=== PATIENT | male | born 1935 | race Caucasian/White ===

== ENCOUNTER → 2016-04-13 | Outpatient (CLI) | payer OTHER, MEDICARE, BC | END | disposition home or self-care (01) | LOC: LABWHC1 11:19 | PROVIDERS: ATTEND Radiology Radiation Oncology | DX: C61 Malignant neoplasm of prostate (principal) | CPT/HCPCS: 36415; 84153 ==

== ENCOUNTER → 2016-04-21 | Outpatient (CLI) | payer MEDICARE, BC ==
[2016-04-21 10:55] LABS: Anion Gap 13 mmol/L; Blood Urea Nitrogen 18 mg/dL (9-20); Carbon Dioxide 28 mmol/L (22-30); Chloride 105 mmol/L (98-107); Non-African American GFR(MDRD) 60 (>60 ml/min/1.73 sqM); Potassium 3.9 mmol/L (3.5-5.1); Sodium 146 mmol/L (137-145)
== END | disposition home or self-care (01) ==
LOC: LABWHC1 10:04
PROVIDERS: ATTEND Internal Medicine Interventional Cardiology
DX: I10 Essential (primary) hypertension (principal)
CPT/HCPCS: 36415; 80051; 82565; 84520

== ENCOUNTER 2016-05-10 13:50 | Emergency (ER) | payer MEDICARE, BC, OTHER ==
[2016-05-10 14:08] VITALS: BP 194/93; PULSE 50; RESP 18; TEMP 97.7
[2016-05-10] MEDS ORDERED: DIPH,PERTUS(ACELL)TETVAC-LF 0.5 ML VIAL IM ONE (14:25)
[2016-05-10] MEDS ORDERED: GELATIN SPONGE,ABSORB (SMALL) 1 EACH SPONGE TOPICAL STA (14:25)
--- NOTE | 2016-05-10 14:35 | ED ---
Wound/Laceration HPI - General Chief Complaint: Wound/Laceration Stated Complaint: Hand Injury-lacerated finger Time Seen by Provider: 05/10/16 14:15 Source: patient, RN notes reviewed Mode of arrival: ambulatory Limitations: no limitations - History of Present Illness Initial Comments: Patient is a 80-year-old male presents emergency room for evaluation of right ring finger laceration. Patient's is present with patient. Patient's states that patient was unhooking the dog leash and accidentally cut his finger with the dog tag. Patient's denies the dog biting patient. Patient 's states that she immediately washed his finger and covered it up with a compression bandage. Patient's states that the area is still bleeding today. Patient's does state that patient is on aspirin and Plavix. Patient's states that patient is due for an update on his tetanus vaccine. Patient's denies any other injuries during incident. - Related Data Home Medications Medication Instructions Recorded Confirmed Allopurinol [Zyloprim] 100 mg PO BID 05/20/15 05/10/16 Aspirin [Adult Low Dose Aspirin EC] 81 mg PO HS 05/20/15 05/10/16 Cholecalciferol [Vitamin D3] 2,000 unit PO DAILY@1200 05/20/15 05/10/16 Clopidogrel [Plavix] 75 mg PO DAILY 05/20/15 05/10/16 Ferrous Sulfate [Feosol] 325 mg PO DAILY@1200 05/20/15 05/10/16 Fish Oil/Dha/Epa [Fish Oil 1,200 1 cap PO DAILY@119905/20/15 05/10/16 mg Fish Oil] Latanoprost Ophth [Xalatan 0.005%] 1 drops BOTH EYES 05/20/15 05/10/16 Losartan Potassium [Cozaar] 100 mg PO DAILY 05/20/15 05/10/16 Lutein 20 mg PO DAILY@119905/20/15 05/10/16 Omeprazole [PriLOSEC] 20 mg PO AC-BID 05/20/15 05/10/16 Vitamin E (Dl,Tocopheryl Acet) 1,200 unit PO DAILY@1200 05/20/15 05/10/16 [Vitamin E] amLODIPine [Norvasc] 10 mg PO DAILY 05/20/15 05/10/16 glipiZIDE [Glucotrol] 5 mg PO AC-TID 05/20/15 05/10/16 sitaGLIPtin PHOSPHATE [Januvia] 100 mg PO DAILY 05/20/15 05/10/16 Furosemide [Lasix] 40 mg PO DAILY@1200 01/28/16 05/10/16 Levothyroxine Sodium [Synthroid] 50 mcg PO DAILY 01/28/16 05/10/16 Metoprolol Tartrate [Lopressor] 25 mg PO BID 01/28/16 05/10/16 Potassium Chloride [Klor-Con 10] 10 meq PO DAILY 01/28/16 05/10/16 Previous Rx's Medication Instructions Recorded Nitroglycerin Sl Tabs [Nitrostat] 0.4 mg SUBLINGUAL Q5M PRN #25 tab 05/23/15 hydrALAZINE HCL [Apresoline] 50 mg PO TID #90 tab 01/29/16 Cephalexin [Keflex] 500 mg PO Q6HR 5 Days 05/10/16 Allergies Allergy/AdvReac Type Severity Reaction Status Date / Time iodine Allergy Dyspnea Verified 05/10/16 14:08 Mushroom Allergy Unknown Verified 05/10/16 14:08 shellfish derived [Shellfish] Allergy Unknown Verified 05/10/16 14:08 Review of Systems ROS Statement: Those systems with pertinent positive or pertinent negative responses have been documented in the HPI. ROS Other: All systems not noted in ROS Statement are negative. 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 , gout, hx skin cancer, prostate cancer, History of Any Multi-Drug Resistant Organisms: None Reported Past Surgical History: Adenoidectomy, Hernia Repair, Tonsillectomy Additional Past Surgical History / Comment(s): skin cancer removed from face, removal of kidney stone, hemorrhoidectomy, Past Anesthesia/Blood Transfusion Reactions: Previous Problems w/ Anesthesia Additional Past Anesthesia/Blood Transfusion Reaction / Comment(s): "takes long to come out" Date of Last Stent Placement:: Past Psychological History: No Psychological Hx Reported Smoking Status: Never smoker Past Alcohol Use History: None Reported Past Drug Use History: None Reported - Past Family History Mother Family Medical History: No Reported History Additional Family Medical History / Comment(s): heart disease, brain anuerysm, boarerline diabetic Father Family Medical History: Diabetes Mellitus, Osteoarthritis (OA), Prostate Disorder Additional Family Medical History / Comment(s): heart disease General Exam - General Exam Comments Initial Comments: Sitting in exam room in no acute distress. Limitations: no limitations General appearance: alert, in no apparent distress Head exam: Present: atraumatic, normocephalic Eye exam: Present: normal appearance ENT exam: Present: normal exam Neck exam: Present: normal inspection Respiratory exam: Absent: respiratory distress Right Hand Wrist exam: Present: full ROM, laceration (1cm laceration on dorsal distal phalanx of right 4th digit, mild active bleeding). Absent: tenderness Neuro motor exam: Present: wrist extension intact, thumb opposition intact, thumb IP flexion intact, thumb adduction intact, fingers 2-5 abduction intact Vascular: Present: normal capillary refill (Capillary refill less than 2 seconds ), radial pulse (2+), ulnar pulse (2+) Back exam: Present: normal inspection Neurological exam: Present: alert, oriented X3, CN II-XII intact Psychiatric exam: Present: normal affect, normal mood Skin exam: Present: warm, dry, normal color. Absent: rash Course Vital Signs 05/10/16 14:05 Temperature 97.7 F Pulse Rate 50 L Respiratory 18 Rate Blood Pressure 194/93 O2 Sat by Pulse 98 Oximetry Medical Decision Making - Medical Decision Making Patient is a 80-year-old male presents to the emergency room for evaluation of right ring finger laceration. Gelfoam was placed over the area and bleeding subsided. Patient was updated on his tetanus vaccine. Patient will be placed on Keflex prophylactically. Patient and his state they understand everything that was discussed with them. Return parameters discussed. Case discussed with Dr. Liao. Disposition Clinical Impression: Finger laceration Disposition: HOME SELF-CARE Condition: Good Instructions: Finger Laceration (ED) Additional Instructions: Keep Gelfoam on for the next 24-48 hours. After Gelfoam falls off, clean laceration with warm water and antibacterial soap. Take antibiotics as directed. Take Tylenol or Motrin as needed for pain. Please follow up with primary care provider in 1-2 days. If any new symptom arises or symptoms worsen , return to ER as soon as possible. Prescriptions: Cephalexin [Keflex] 500 mg PO Q6HR 5 Days Referrals: Warner Parada DO [Primary Care Provider] - 1-2 days Time of Disposition: 14:33
== END 2016-05-10 15:08 | disposition home or self-care (01) ==
LOC: EC 13:50
DX: S61.214A Laceration without foreign body of right ring finger without damage to nail, initial encounter (principal); W45.8XXA Other foreign body or object entering through skin, initial encounter; E11.9 Type 2 diabetes mellitus without complications; I10 Essential (primary) hypertension; E07.9 Disorder of thyroid, unspecified; I20.9 Angina pectoris, unspecified; G47.30 Sleep apnea, unspecified; Z99.89 Dependence on other enabling machines and devices; I69.392 Facial weakness following cerebral infarction; I69.351 Hemiplegia and hemiparesis following cerebral infarction affecting right dominant side; Z23 Encounter for immunization; Z79.82 Long term (current) use of aspirin; Z79.02 Long term (current) use of antithrombotics/antiplatelets; Z79.84 Long term (current) use of oral hypoglycemic drugs; Z79.899 Other long term (current) drug therapy; Z88.8 Allergy status to other drugs, medicaments and biological substances; I69.328 Other speech and language deficits following cerebral infarction
CPT/HCPCS: 90471; 90715; 99282

== ENCOUNTER → 2016-06-30 | Outpatient (CLI) | payer MEDICARE, BC ==
[~2016-06-30] MED LIST: FUROSEMIDE 10 MG/ML 2 ML VIAL IVP NR; SODIUM CHLORIDE 0.9% 1,000 ML IV ONE; SODIUM CHLORIDE 0.9% 250 ML in EMPTY BAG 1 BAG IV PRN; SODIUM CHLORIDE 0.9% 500 ML in EMPTY BAG 1 BAG IV PRN
[2016-06-30] MEDS: SODIUM CHLORIDE 0.9% 1,000 ML IV ONE ×2 (12:25→14:32)
[2016-06-30 12:44] VITALS: BP 180/86; PULSE 53; RESP 16; TEMP 97.7
== END | disposition home or self-care (01) ==
LOC: PROCWHC3 12:12
PROVIDERS: ATTEND Family Medicine
DX: E86.0 Dehydration (principal); J11.1 Influenza due to unidentified influenza virus with other respiratory manifestations
CPT/HCPCS: 96360; 96361; 96375; J1940; 80053; 85025

== ENCOUNTER → 2016-08-18 | Outpatient (CLI) | payer MEDICARE, BC | END | disposition home or self-care (01) | LOC: LABWHC1 12:07 | PROVIDERS: ATTEND Radiology Radiation Oncology | DX: C61 Malignant neoplasm of prostate (principal) | CPT/HCPCS: 36415; 84153 ==

== ENCOUNTER → 2016-09-17 | Outpatient (CLI) | payer MEDICARE, BC, OTHER ==
[2016-09-17 10:19] LABS: ALT 26 U/L (21-72); AST 14 U/L (17-59); Cholesterol 105 mg/dL (<200); HDL Cholesterol 31 mg/dL (40-60); Triglycerides 166 mg/dL (<150)
== END | disposition home or self-care (01) ==
LOC: LABWHC1 09:08
PROVIDERS: ATTEND Internal Medicine Interventional Cardiology
DX: E78.2 Mixed hyperlipidemia (principal)
CPT/HCPCS: 36415; 80061; 84450; 84460

== ENCOUNTER → 2016-09-18 | Outpatient (CLI) | payer MEDICARE, BC, OTHER ==
[2016-09-18 12:13] LABS: CH 31.8; CHCM 35.9; HCT 37.3 % (39.0-53.0); HDW 3.19; HGB 13.5 gm/dL (13.0-17.5); MCH 32.2 pg (25.0-35.0); MCHC 36.2 g/dL (31.0-37.0); Mean Platelet Volume 7.9; RBC 4.19 m/uL (4.30-5.90); RDW 13.8 % (11.5-15.5); WBC 7.6 k/uL (3.8-10.6)
[2016-09-18 12:42] LABS: Anion Gap 9 mmol/L; Blood Urea Nitrogen 24 mg/dL (9-20); Carbon Dioxide 27 mmol/L (22-30); Chloride 105 mmol/L (98-107); Non-African American GFR(MDRD) >60 (>60 ml/min/1.73 sqM); Sodium 141 mmol/L (137-145)
== END ==
LOC: LABPAT 11:27
PROVIDERS: ATTEND Internal Medicine Interventional Cardiology
DX: Z01.812 Encounter for preprocedural laboratory examination (principal); I25.10 Atherosclerotic heart disease of native coronary artery without angina pectoris
CPT/HCPCS: 36415; 80051; 82565; 84520; 85027

== ENCOUNTER 2016-09-23 06:29 | Day surgery (SDC) | payer MEDICARE, BC ==
[2016-09-18 09:16] VITALS: BMI 24.2
[~2016-09-23 06:29] MED LIST changes: +ALPRAZolam 0.25 MG TAB PO PRN; +ALPRAZolam 0.5 MG TAB PO PRN; +ASPIRIN 325 MG TAB PO STA; +ATORVASTATIN 80 MG TAB PO STA; -FUROSEMIDE 10 MG/ML 2 ML VIAL IVP NR; +NITROGLYCERIN SL TABS 0.4 MG TAB SUBLINGUAL PRN; -SODIUM CHLORIDE 0.9% 1,000 ML IV ONE; +SODIUM CHLORIDE 0.9% 1,000 ML in EMPTY BAG 1 BAG IV ONE; -SODIUM CHLORIDE 0.9% 250 ML in EMPTY BAG 1 BAG IV PRN; -SODIUM CHLORIDE 0.9% 500 ML in EMPTY BAG 1 BAG IV PRN
[2016-09-23] MEDS ORDERED: LIDOCAINE 2% INJ 20 MG/ML (20 ML MDV) ONE (07:10)
[2016-09-23] MEDS ORDERED: INSULIN LISPRO (humaLOG) 300 UNIT/3 ML VIAL SQ ONE (07:17)
[2016-09-23] MEDS ORDERED: IV FLUID CONTINUATION 1,000 ML IV ONE (07:19)
[2016-09-23 07:22] LABS: Glucose,Whole Blood 405 mg/dL (75-99)
[2016-09-23] MEDS ORDERED: fentaNYL (PF) 50 MCG/ML 2 ML AMP ONE (07:25)
[2016-09-23] MEDS ORDERED: MIDAZOLAM 2 MG/2 ML VIAL ONE (07:25)
[2016-09-23] MEDS ORDERED: VERAPAMIL 2.5 MG/ML 2 ML AMP ONE (07:25)
[2016-09-23] MEDS ORDERED: HEPARIN SODIUM 1,000 UN/ML (10ML VL) ONE (07:25)
[2016-09-23] MEDS ORDERED: fentaNYL (PF) 50 MCG/ML 2 ML AMP IV ONE (07:34)
[2016-09-23] MEDS ORDERED: LIDOCAINE 2% INJ 20 MG/ML SQ ONE (07:35)
[2016-09-23] MEDS: VERAPAMIL SYRINGE (5 MG/10 ML) INTRAARTER ONE ×2 (07:37→07:50)
[2016-09-23] MEDS ORDERED: BIVALIRUDIN BOLUS 250 MG/50 ML IV ONE (07:47)
[2016-09-23] MEDS ORDERED: BIVALIRUDIN 250 MG in SODIUM CHLORIDE 0.9% 50 ML IV ONE (07:48)
[2016-09-23] MEDS ORDERED: NITROGLYCERIN 1000MCG/10ML SYRINGE INTRACORON ONE (08:02)
[2016-09-23] MEDS ORDERED: IOHEXOL 350 MG/ML 125ML BOTTLE INJ ONE (08:12)
[2016-09-23] MEDS ORDERED: RX INFO: IV CONTRAST WAS GIVEN 1 EACH MISC MISCELLANE PRN (08:28)
[2016-09-23] MEDS ORDERED: SODIUM CHLORIDE 0.9% 1,000 ML IV SCH (08:30)
[2016-09-23 08:52] VITALS: RESP 18
[2016-09-23] MEDS: ALLOPURINOL 100 MG TAB PO SCH (09:49)
[2016-09-23] MEDS: LEVOTHYROXINE 50 MCG TAB PO SCH (09:50)
[2016-09-23] MEDS: METOPROLOL TARTRATE 50 MG TAB PO SCH ×2 (09:50→21:28)
[2016-09-23] MEDS: LOSARTAN 50 MG TAB PO SCH (09:50)
[2016-09-23] MEDS: LINAGLIPTIN 5 MG TABLET PO SCH (09:51)
[2016-09-23] MEDS: PANTOPRAZOLE 40 MG TABLET PO SCH (09:51)
[2016-09-23] MEDS: amLODIPine 10 MG TAB PO SCH (09:51)
--- NOTE | 2016-09-23 10:34 | PCN ---
CARDIAC CATHETERIZATION Mr. Avelar is a 81-year-old male with a know history of coronary artery disease , status post percutaneous revascularization in May of 2005 who presented with symptoms of recurrent chest discomfort relieved with nitroglycerine. In view of that, recommendation regarding cardiac catheterization, the procedure, the procedure, its risks and complications were discussed with the patient who is in full understanding and agreement. PROCEDURE: The patient was brought to the [facility] in a fasting semi-sedated state after receiving Fentanyl and Benadryl and after achieving moderate conscious sedated state and using Xylocaine anesthesia and Seldinger Technique, a 6 [place] sheath was introduced in the right radial artery, selective right and left coronary angiography was performed using 5 [place], 4 Bend Right Javi catheter, multiple views of the coronary artery including nakia-axial views were obtained. Following that, 5 [place] tight pigtail catheter was introduced into the left ventricle and a 30 degree MCDONALD view of the left ventricle was obtained. Following that, catheter was removed, images were reviewed. FINDINGS: LEFT MAIN: This is a large size vessel, bifurcating into left circumflex, left anterior descending artery, left main coronary artery is without any obstructive disease. LEFT ANTERIOR DESCENDING CORONARY ARTERY: This is a large size vessel, tapers down the distal third, giving rise to a large diagonal branch in midsegment, the stented segment proximally is patent, the second stent in the mid LAD is patent. Proximal to the second stent, right after the bifurcation of the diagonal branch, there is an eccentric 95% stenosis. The rest of the vessel has no high-grade stenosis. LEFT CIRCUMFLEX: This is a nondominant vessel, giving rise to 3 obtuse marginal branches, the left circumflex has mild intimal disease in the first obtuse marginal branch 20% to 30% without any evidence of high-grade stenosis. RIGHT CORONARY ARTERY: This is a large dominant vessel, bifurcating into PDA and posterolateral branches, the right coronary artery as well as branches have no evidence of obstructive coronary artery disease. LEFT VENTRICULOGRAM: The left ventriculogram was performed in 30 degree MCDONALD view and revealed normal left ventricular size and systolic function, ejection fraction 60%. There was no significant mitral regurgitation. HEMODYNAMICS: There was no gradient across the aortic valve, the left ventricular end-diastolic pressure was 18 to 22 mmHg. CONCLUSION: 1. Significant stenosis proximal to the second stent in the mid left anterior descending artery. 2. Mild disease in the left circumflex. 3. Normal left ventricular size and systolic function. RECOMMENDATION: In view of finding anatomy, I recommend proceeding with angioplasty and stenting of the anterior descending artery. The procedure as well as the risks and complications were discussed with the patient who is under full understanding and agreement. MARIA INES
[2016-09-23] MEDS: CLOPIDOGREL 75 MG TAB PO SCH (10:46)
--- NOTE | 2016-09-23 11:16 | PCN ---
ANGIOPLASTY: Mr. Avelar is a 81-year-old male with a known history of coronary artery disease who presented with symptoms of new onset angina pectoris, underwent cardiac catheterization, was found to have critical stenosis proximal to the mid LAD stent. In view of that, recommendation made regarding angioplasty and stenting, the procedure, as well as risks and complications were discussed with the patient who is in full understanding and agreement. Procedure: a 6 [place] 3.5 Bend left Javi catheter was used to cannulate the left main. Following that, 0.014 Advance medium J-wire was advanced across the lesion, advanced through the vessel and advanced through the first diagonal branch and another 0.014 Advance medium J-wire was advanced and positioned in the distal LAD. Following that, a 2.5 x 12 mm Trek balloon was advanced with inflation at 8 atmospheres was done. Following that, the balloon was removed and a 2.75 x 12 mm Xience Alpine stent was deployed, post- dilated to 14 atmospheres, after the last inflation, after appropriate wait, the balloon and guidewire were withdrawn back into the guiding catheter. Images were obtained and repeated. Those images revealed stable successful stenting. At that point, the guiding catheter, the balloon and the guidewire were removed. The sheath was removed, hemostasis was obtained with deployment of a TR band. There was no immediate complication. Patient was returned to his room in a stable condition. Of note, the patient received Angiomax per protocol. He has received intra-arterial Verapamil. He had EKG changes with the inflation with no significant chest discomfort. RESULT: Successful stenting of the mid LAD with reduction of stenosis from 95% to 0%. RECOMMENDATION: The patient will be continued on aspirin, Plavix, beta adin , and statin. The importance of dual antiplatelet treatment was discussed with the patient and his family, who are in full understanding and agreement. DURATION OF THE PROCEDURE: 41 minutes. MARIA INES
--- NOTE | 2016-09-23 11:24 | MISC ---
RE: JEREMY HARRISON Dear Dr. Parada; I had the pleasure to perform cardiac catheterization and coronary angioplasty and stenting on Mr. Harrison at [facility] on September 23, 2016 and a full copy of the procedure note will be forwarded to you. In brief, he was found to have significant stenosis in the mid LAD, underwent successful stenting of that vessel using a EVA. I am hopeful that this procedure will stabilize his status and thank you again for allowing me to participate in this patient's care. Please feel free to call for any questions. Sincerely yours, MD MARIA INES Eubanks
[2016-09-23] MEDS: FERROUS SULFATE 325 MG TAB PO SCH (11:36)
[2016-09-23] MEDS: CHOLECALCIFEROL 1,000 UNIT TAB PO SCH (11:36)
[2016-09-23] MEDS: glipiZIDE 10 MG TAB PO SCH ×2 (11:36→16:59)
[2016-09-23] MEDS: VITAMIN E (DL,TOCOPHERYL ACET) 400 UNIT CAP PO SCH (11:37)
[2016-09-23] MEDS ORDERED: NON-FORMULARY DRUG (Fish Oil/Dha/Epa [Fish Oil 1,200 Mg Fish Oil] 1 CAP) PO SCH (12:00)
[2016-09-23] MEDS ORDERED: NON-FORMULARY DRUG (Lutein [Lutein] 20 MG) PO SCH (12:00)
[2016-09-23 12:07] LABS: Glucose,Whole Blood 415 mg/dL (75-99)
[2016-09-23] MEDS: INSULIN LISPRO (humaLOG) 300 UNIT/3 ML VIAL SQ SCH ×3 (13:03→21:28)
[2016-09-23 16:25] LABS: Glucose,Whole Blood 355 mg/dL (75-99)
[2016-09-23 20:26] LABS: Glucose,Whole Blood 288 mg/dL (75-99)
[2016-09-23] MEDS ORDERED: LATANOPROST 0.005% OPHTH DROPS 2.5 ML BTL BOTH EYES SCH (21:00)
[2016-09-23] MEDS ORDERED: TAMSULOSIN 0.4 MG CAP.ER.24H PO SCH (21:00)
[2016-09-24 05:54] LABS: Glucose,Whole Blood 240 mg/dL (75-99)
[2016-09-24 06:19] LABS: Anion Gap 8 mmol/L; Blood Urea Nitrogen 27 mg/dL (9-20); Calcium 9.5 mg/dL (8.4-10.2); Carbon Dioxide 26 mmol/L (22-30); Chloride 106 mmol/L (98-107); Glucose 216 mg/dL (74-99); Non-African American GFR(MDRD) >60 (>60 ml/min/1.73 sqM); Potassium 3.7 mmol/L (3.5-5.1); Sodium 140 mmol/L (137-145)
[2016-09-24] MEDS: glipiZIDE 10 MG TAB PO SCH (06:31)
[2016-09-24] MEDS: PANTOPRAZOLE 40 MG TABLET PO SCH (06:31)
[2016-09-24] MEDS: INSULIN LISPRO (humaLOG) 300 UNIT/3 ML VIAL SQ SCH (06:31)
[2016-09-24] MEDS: LEVOTHYROXINE 50 MCG TAB PO SCH (06:31)
[2016-09-24 08:28] VITALS: BP 138/67; PULSE 57; TEMP 97.9
[2016-09-24] MEDS: VITAMIN E (DL,TOCOPHERYL ACET) 400 UNIT CAP PO SCH (08:38)
[2016-09-24] MEDS: CLOPIDOGREL 75 MG TAB PO SCH (08:39)
[2016-09-24] MEDS: amLODIPine 10 MG TAB PO SCH (08:39)
[2016-09-24] MEDS: FERROUS SULFATE 325 MG TAB PO SCH (08:39)
[2016-09-24] MEDS: METOPROLOL TARTRATE 50 MG TAB PO SCH (08:39)
[2016-09-24] MEDS: LOSARTAN 50 MG TAB PO SCH (08:39)
[2016-09-24] MEDS: ALLOPURINOL 100 MG TAB PO SCH (08:39)
[2016-09-24] MEDS: CHOLECALCIFEROL 1,000 UNIT TAB PO SCH (08:40)
[2016-09-24] MEDS: LINAGLIPTIN 5 MG TABLET PO SCH (08:40)
--- NOTE | 2016-09-24 09:18 | PN ---
Mr. Avelar is a 81-year-old male with known history of coronary artery disease who presented with symptoms of angina pectoris, underwent cardiac catheterization, was found to have significant stenosis proximal to the second stent of the LAD that was placed in May 2015, underwent stenting of that vessel. He is doing well this morning, ambulating without difficulty. Denying any chest pain, no dizziness, no palpitation. He continued to be on aspiration once a day, Plavix 75 mg daily, Lipitor 20 mg daily, glipizide 10 mg 3 times a day, levothyroxine 0.05 mg daily, Tradjenta 5 mg daily, Losartan 100 mg daily, metoprolol tartrate 100 mg twice a day, Protonix and Flomax. PHYSICAL EXAMINATION: Blood pressure 127/72 with the heart rate in the 50s LUNGS: Clear. HEART: Regular rate and rhythm. S1, S2, no S3, no rub. ABDOMEN: Soft, nontender. EXTREMITIES: No edema. Right radial pulse intake. EKG revealed no acute changes. BUN and creatinine 27 and 1.1. Potassium 3.7. IMPRESSION: 1. Status post stenting of the left anterior descending stable. 2. Hypertension. 3. Hyperlipidemia. 4. Diabetes mellitus. RECOMMENDATIONS: The patient will be discharged home today and followed as an outpatient on the present medical regimen. MARIA INES
[2016-09-24] MEDS ORDERED: ASPIRIN 81 MG CHEW PO SCH (21:00)
[2016-09-24] MEDS ORDERED: ATORVASTATIN 20 MG TAB PO SCH (21:00)
== END 2016-09-24 09:31 | disposition home or self-care (01) ==
LOC: CATHCVL 06:29 → 6SEL 08:11 → CATHCVL 09-24 09:31
PROVIDERS: ATTEND Internal Medicine Interventional Cardiology
DX: I25.110 Atherosclerotic heart disease of native coronary artery with unstable angina pectoris (principal); Z95.5 Presence of coronary angioplasty implant and graft; E78.2 Mixed hyperlipidemia; I12.9 Hypertensive chronic kidney disease with stage 1 through stage 4 chronic kidney disease, or unspecified chronic kidney disease; E11.22 Type 2 diabetes mellitus with diabetic chronic kidney disease; N18.9 Chronic kidney disease, unspecified; E78.00 Pure hypercholesterolemia, unspecified; G47.30 Sleep apnea, unspecified; Z82.49 Family history of ischemic heart disease and other diseases of the circulatory system; Z86.73 Personal history of transient ischemic attack (TIA), and cerebral infarction without residual deficits; Z79.84 Long term (current) use of oral hypoglycemic drugs; Z79.02 Long term (current) use of antithrombotics/antiplatelets; Z79.82 Long term (current) use of aspirin; Z79.899 Other long term (current) drug therapy
CPT/HCPCS: 99152; 99153; 93458; 80048; 83036; C9600; C1769 ×2; C1887; C1894; C1725; C1874; J2001; J3010; J0583; Q9967

== ENCOUNTER → 2016-12-31 | Outpatient (CLI) | payer MEDICARE, BC, OTHER ==
[2016-12-31 10:04] LABS: ALT 33 U/L (21-72); AST 20 U/L (17-59); Alkaline Phosphatase 86 U/L (38-126); Anion Gap 10 mmol/L; Blood Urea Nitrogen 19 mg/dL (9-20); Calcium 9.5 mg/dL (8.4-10.2); Carbon Dioxide 28 mmol/L (22-30); Chloride 110 mmol/L (98-107); Cholesterol 123 mg/dL (<200); Glucose 87 mg/dL (74-99); HDL Cholesterol 44 mg/dL (40-60); Non-African American GFR(MDRD) >60 (>60 ml/min/1.73 sqM); Sodium 148 mmol/L (137-145); Total Bilirubin 0.9 mg/dL (0.2-1.3); Total Protein 6.6 g/dL (6.3-8.2)
== END | disposition home or self-care (01) ==
LOC: LABWHC1 09:34
PROVIDERS: ATTEND Internal Medicine Interventional Cardiology
DX: E78.2 Mixed hyperlipidemia (principal)
CPT/HCPCS: 36415; 80053; 80061

== ENCOUNTER → 2017-04-28 | Outpatient (CLI) | payer MEDICARE, BC, OTHER ==
[2017-04-28 09:52] LABS: ALT 32 U/L (21-72); AST 22 U/L (17-59); Albumin 3.6 g/dL (3.5-5.0); Alkaline Phosphatase 90 U/L (38-126); Anion Gap 8 mmol/L; Blood Urea Nitrogen 23 mg/dL (9-20); Calcium 9.8 mg/dL (8.4-10.2); Carbon Dioxide 32 mmol/L (22-30); Chloride 107 mmol/L (98-107); Cholesterol 146 mg/dL (<200); Glucose 163 mg/dL (74-99); HDL Cholesterol 37 mg/dL (40-60); LDL Cholesterol,Calculated 61 mg/dL (0-99); Potassium 3.9 mmol/L (3.5-5.1); Sodium 147 mmol/L (137-145); Total Bilirubin 0.7 mg/dL (0.2-1.3); Total Protein 6.2 g/dL (6.3-8.2); Triglycerides 240 mg/dL (<150)
[2017-04-28 19:22] LABS: Hemoglobin A1C 5.8 % (4.0-6.0)
== END | disposition home or self-care (01) ==
LOC: LABWHC1 09:08
PROVIDERS: ATTEND Internal Medicine Endocrinology, Diabetes & Metabolism
DX: E11.65 Type 2 diabetes mellitus with hyperglycemia (principal)
CPT/HCPCS: 36415; 80053; 80061; 82043; 82570; 83036

== ENCOUNTER → 2017-05-12 | Outpatient (CLI) | payer MEDICARE, BC, OTHER ==
[2017-05-12 11:11] LABS: T4, Free (Free Thyroxine) 1.16 ng/dL (0.78-2.19)
[2017-05-12 17:46] LABS: Thyroid Peroxidase Antibodies 34.5 U/mL (0.0-60.0)
== END | disposition home or self-care (01) ==
LOC: LABWHC1 09:36
PROVIDERS: ATTEND Family Medicine
DX: E03.9 Hypothyroidism, unspecified (principal)
CPT/HCPCS: 36415; 84439; 84443; 84480; 86376; 86800

== ENCOUNTER 2017-06-25 06:55 | Day surgery (SDC) | payer MEDICARE, BC ==
[2017-06-23 15:19] VITALS: BMI 25.6
[~2017-06-25 06:55] MED LIST changes: -ALPRAZolam 0.25 MG TAB PO PRN; -ALPRAZolam 0.5 MG TAB PO PRN; -ASPIRIN 325 MG TAB PO STA; -ATORVASTATIN 80 MG TAB PO STA; +LACTATED RINGERS 1,000 ML IV SCH; +LIDOCAINE 1% 20 ML VIAL (10MG/ML) FOR IV START INTRADERMA PRN; -NITROGLYCERIN SL TABS 0.4 MG TAB SUBLINGUAL PRN; -SODIUM CHLORIDE 0.9% 1,000 ML in EMPTY BAG 1 BAG IV ONE
[2017-06-25 07:48] VITALS: RESP 16; TEMP 97.1
[2017-06-25 07:48] LABS: Glucose,Whole Blood 95 mg/dL (75-99)
[2017-06-25] MEDS ORDERED: PROPOFOL 10 MG/ML 20 ML VIAL IV ONE (08:37)
--- NOTE | 2017-06-25 09:02 | P.PCN ---
Date of Procedure: 06/25/17 Procedure(s) Performed: BRIEF HISTORY: Patient is a 82-year-old pleasant white male, scheduled for an elective colonoscopy as a part of screening for colorectal neoplasia. He was recently noted to have a positive cologard test. PROCEDURE PERFORMED: Colonoscopy with snare polypectomy. PREOPERATIVE DIAGNOSIS: Screening for colon cancer. IV sedation per Anesthesia. PROCEDURE: After informed consent was obtained, the patient, was brought into the endoscopy unit. IV sedation was administered by Anesthesia under continuous monitoring. Digital rectal examination was normal. Initially the Olympus CF- 160 flexible video colonoscope was then inserted in the rectum, gradually advanced into the cecum without any difficulty. Careful examination was performed as the scope was gradually being withdrawn. Ileocecal valve and the appendiceal orifice were visualized and appeared normal. Prep was excellent. Mucosa of the cecum, appeared normal. There was a 1 cm broad-based cecal polyp status post snare polypectomy. The ascending colon appeared normal. In the proximal transverse colon there was a 5 mm and once admitted broad-based polyps removed by snare polypectomy. In the sigmoid colon there was a 1.5 cm broad- based polyp removed by snare polypectomy. In the distal rectum there was a 5 mm polyp removed by snare polypectomy. The rest of the transverse colon, descending colon, sigmoid colon, and rectum appeared normal. Retroflexion was performed in the rectum and grade 2 internal hemorrhoids were seen. The patient tolerated the procedure well. IMPRESSION: 1 cm cecal polyp status post polypectomy 1 cm and 5 mm transverse colon polyp status post polypectomy 1 cm sigmoid colon polyp status post polypectomy 5 mm distal rectal polyp status post snare polypectomy RECOMMENDATIONS: Findings of this examination were discussed with the patient as well as his family. He was advised to follow with the biopsy results. If the biopsy shows a tubular adenoma he can have a repeat colonoscopy in 3 years based on his overall medical condition.
[2017-06-25 09:11] LABS: Glucose,Whole Blood 85 mg/dL (75-99)
[2017-06-25 09:30] VITALS: BP 185/78; PULSE 47
== END 2017-06-25 10:33 | disposition home or self-care (01) ==
LOC: ORWHC2ENDO 06:55
PROVIDERS: ATTEND Internal Medicine Gastroenterology
DX: D12.0 Benign neoplasm of cecum (principal); D12.3 Benign neoplasm of transverse colon; D12.5 Benign neoplasm of sigmoid colon; K62.1 Rectal polyp; K64.1 Second degree hemorrhoids; K21.9 Gastro-esophageal reflux disease without esophagitis; I25.10 Atherosclerotic heart disease of native coronary artery without angina pectoris; I10 Essential (primary) hypertension; Z86.73 Personal history of transient ischemic attack (TIA), and cerebral infarction without residual deficits; G47.33 Obstructive sleep apnea (adult) (pediatric); E07.9 Disorder of thyroid, unspecified; Z79.4 Long term (current) use of insulin; Z79.01 Long term (current) use of anticoagulants; Z79.02 Long term (current) use of antithrombotics/antiplatelets; Z79.82 Long term (current) use of aspirin; Z91.041 Radiographic dye allergy status; Z91.013 Allergy to seafood; Z91.02 Food additives allergy status
CPT/HCPCS: 88305; 45385; J2704

== ENCOUNTER → 2017-08-24 | Outpatient (CLI) | payer MEDICARE, BC ==
[2017-08-24 09:28] LABS: ALT 28 U/L (21-72); AST 17 U/L (17-59); Cholesterol 135 mg/dL (<200); HDL Cholesterol 35 mg/dL (40-60); LDL Cholesterol,Calculated 62 mg/dL (0-99); Triglycerides 188 mg/dL (<150)
== END | disposition home or self-care (01) ==
LOC: LABWHC1 08:01
PROVIDERS: ATTEND Internal Medicine Interventional Cardiology
DX: E78.2 Mixed hyperlipidemia (principal)
CPT/HCPCS: 36415; 80061; 84450; 84460

== ENCOUNTER 2017-09-26 11:11 | Inpatient (IN) | payer MEDICARE, BC ==
[2017-09-26] MEDS ORDERED: SODIUM CHLORIDE 0.9% 500 ML IV STA (11:20)
[2017-09-26] MEDS ORDERED: hydrALAZINE HCL 20 MG/ML 1 ML VIAL IVP STA ×2 (11:21→12:14)
--- NOTE | 2017-09-26 11:25 | ED ---
General Adult HPI - General Stated complaint: High Blood Pressure, Slurring words Time Seen by Provider: 09/26/17 11:11 Source: RN notes reviewed - History of Present Illness Initial comments: This is an 82-year-old male who presents emergency Department with a past medical history significant for hypertension, coronary artery stents, CVAs and diabetes. Patient presents today with slurred speech and facial droop according to the . states started last night prior to bed when she woke up this morning the slurred speech was worse and he had facial droop now which was not present last night. states patient also had very elevated blood pressures this morning in that another reason she brought him in. states she's had 5 previous strokes. Patient himself complains of general fatigue. No other problems. Patient denies headache patient denies any numbness or focal weakness. Patient denies any lightheadedness or dizziness. Patient states he is overall weak. Patient denies any chest pain palpitations difficulty breathing shortness of breath. Patient denies any abdominal pain patient denies nausea vomiting or diarrhea. - Related Data Home Medications Medication Instructions Recorded Confirmed Aspirin [Adult Low Dose Aspirin EC] 81 mg PO HS 05/20/15 09/26/17 Cholecalciferol [Vitamin D3] 2,000 unit PO DAILY@119905/20/15 09/26/17 Clopidogrel [Plavix] 75 mg PO DAILY 05/20/15 09/26/17 Ferrous Sulfate [Feosol] 325 mg PO DAILY@119905/20/15 09/26/17 Fish Oil/Dha/Epa [Fish Oil 1,200 1 cap PO DAILY@119905/20/15 09/26/17 mg Fish Oil] Losartan Potassium [Cozaar] 100 mg PO DAILY 05/20/15 09/26/17 Lutein 20 mg PO DAILY@119905/20/15 09/26/17 Omeprazole [PriLOSEC] 20 mg PO AC-BID 05/20/15 09/26/17 Vitamin E (Dl,Tocopheryl Acet) 1,200 unit PO DAILY@119905/20/15 09/26/17 [Vitamin E] amLODIPine [Norvasc] 10 mg PO DAILY 05/20/15 09/26/17 glipiZIDE [Glucotrol] 10 mg PO AC-TID 05/20/15 09/26/17 Levothyroxine Sodium [Synthroid] 50 mcg PO DAILY 01/28/16 09/26/17 Metoprolol Tartrate [Lopressor] 100 mg PO BID 01/28/16 09/26/17 Atorvastatin [Lipitor] 20 mg PO HS 06/30/16 09/26/17 Saxagliptin HCl [Onglyza] 5 mg PO BID 09/18/16 09/26/17 Furosemide [Lasix] 40 mg PO Q48H 06/23/17 09/26/17 Insulin Glargine [Lantus] 14 unit SQ HS 06/23/17 09/26/17 Potassium Chloride ER [K-Dur 20] 20 meq PO Q48H 09/26/17 09/26/17 Allergies Allergy/AdvReac Type Severity Reaction Status Date / Time Iodinated Contrast- Oral and Allergy Dyspnea Verified 09/26/17 12:47 IV Dye Mushroom Allergy Nausea & Verified 09/26/17 12:47 Vomiting & Diarrhea shellfish derived [Shellfish] Allergy Dyspnea Verified 09/26/17 12:47 gluten AdvReac Unknown Verified 09/26/17 12:47 Review of Systems ROS Statement: Those systems with pertinent positive or pertinent negative responses have been documented in the HPI. ROS Other: All systems not noted in ROS Statement are negative. Past Medical History Past Medical History: Cancer, Chest Pain / Angina, CVA/TIA, Diabetes Mellitus, Hearing Disorder / Deafness, Hyperlipidemia, Hypertension, Prostate Disorder, Renal Disease, Sleep Apnea/CPAP/BIPAP, Thyroid Disorder Additional Past Medical History / Comment(s): CVA- has weakness rt leg-uses cane , gout, hx skin cancer, prostate cancer 2016, 2 MONTHS OF RADIATION & hormone therapy JUNE 2016, uses CPAP, frequent constipation, decreased renal function-sees kidney History of Any Multi-Drug Resistant Organisms: None Reported Past Surgical History: Adenoidectomy, Heart Catheterization With Stent, Hernia Repair, Tonsillectomy Additional Past Surgical History / Comment(s): skin cancer removed from face, removal of kidney stone, hemorrhoidectomy, COLONOSCOPY, 3 stents Past Anesthesia/Blood Transfusion Reactions: Previous Problems w/ Anesthesia Additional Past Anesthesia/Blood Transfusion Reaction / Comment(s): "takes long to come out" Date of Last Stent Placement:: 09/23/16 Smoking Status: Never smoker - Past Family History Mother Family Medical History: No Reported History Additional Family Medical History / Comment(s): heart disease, brain aneurysm Father Family Medical History: Diabetes Mellitus, Osteoarthritis (OA), Prostate Disorder Additional Family Medical History / Comment(s): heart disease General Exam - General Exam Comments Initial Comments: GENERAL: Patient is well-developed and well-nourished. Patient is nontoxic and well- hydrated and is in no acute distress. Patient appears very fatigued ENT: Neck is soft and supple. No significant lymphadenopathy is noted. Oropharynx is clear. Moist mucous membranes. Neck has full range of motion without eliciting any pain. EYES: The sclera were anicteric and conjunctiva were pink and moist. Extraocular movements were intact and pupils were equal round and reactive to light. Eyelids were unremarkable. PULMONARY: Unlabored respirations. Good breath sounds bilaterally. No audible rales rhonchi or wheezing was noted. CARDIOVASCULAR: There is a regular rate and rhythm without any murmurs gallops or rubs. ABDOMEN: Soft and nontender with normal bowel sounds. No palpable organomegaly was noted. There is no palpable pulsatile mass. SKIN: Skin is clear with no lesions or rashes and otherwise unremarkable. NEUROLOGIC: Patient is alert and oriented x3. Cranial nerves II through XII are grossly intact. Motor and sensory are also intact. Normal speech, volume and content. Symmetrical smile. MUSCULOSKELETAL: Normal extremities with adequate strength and full range of motion. No lower extremity swelling or edema. No calf tenderness. LYMPHATICS: No significant lymphadenopathy is noted PSYCHIATRIC: Normal psychiatric evaluation. Normal interpersonal interactions appears functionally intact in deals appropriately with others. No signs of depression. No signs of anxiety Course Vital Signs 09/26/17 09/26/17 09/26/17 11:19 12:00 12:39 Temperature 96.9 F L Pulse Rate 44 L 44 L 44 L Respiratory 20 16 16 Rate Blood Pressure 224/93 237/104 198/92 O2 Sat by Pulse 98 95 98 Oximetry Medical Decision Making - Medical Decision Making EKG shows sinus bradycardia at 46 bpm WI interval is 232 QRS is 96 Q-T intervals 542 QTC is 474. Patient's EKG shows some T-wave inversions in 1 and aVL as well as V6. Chest x-ray shows no acute abnormality. Computed tomography scan shows no acute abnormality. Patient has been bradycardic throughout his stay white states that this is his baseline. Patient 's blood pressure was elevated I gave hydralazine 10 mg 2 and brought her pressure down to about 198 systolic I gave the patient Vasotec at this time. I spoke with Dr. Melchor she agreed to admit the patient admitted the patient I wrote admitting orders I consult Dr. Astudillo - Lab Data Result diagrams: 09/26/17 11:25 09/26/17 11:25 Lab Results 09/26/17 09/26/17 09/26/17 Range/Units 11:17 11:25 11:25 WBC 5.6 (3.8-10.6) k/uL RBC 4.66 (4.30-5.90) m/uL Hgb 13.2 (13.0-17.5) gm/dL Hct 38.6 L (39.0-53.0) % MCV 82.7 (80.0-100.0) fL MCH 28.4 (25.0-35.0) pg MCHC 34.3 (31.0-37.0) g/dL RDW 14.4 (11.5-15.5) % Plt Count 152 (150-450) k/uL Neutrophils % 57 % Lymphocytes % 30 % Monocytes % 7 % Eosinophils % 3 % Basophils % 1 % Neutrophils # 3.2 (1.3-7.7) k/uL Lymphocytes # 1.7 (1.0-4.8) k/uL Monocytes # 0.4 (0-1.0) k/uL Eosinophils # 0.2 (0-0.7) k/uL Basophils # 0.0 (0-0.2) k/uL PT (9.0-12.0) sec INR (<1.2) APTT (22.0-30.0) sec Sodium (137-145) mmol/L Potassium (3.5-5.1) mmol/L Chloride (98-107) mmol/L Carbon Dioxide (22-30) mmol/L Anion Gap mmol/L BUN (9-20) mg/dL Creatinine (0.66-1.25) mg/dL Est GFR (CKD-EPI)AfAm (>60 ml/min/1.73 sqM) Est GFR (CKD-EPI)NonAf (>60 ml/min/1.73 sqM) Glucose (74-99) mg/dL POC Glucose (mg/dL) 141 H (75-99) mg/dL POC Glu [employer] ID Nicolle Moody Calcium (8.4-10.2) mg/dL Magnesium (1.6-2.3) mg/dL Total Bilirubin (0.2-1.3) mg/dL AST (17-59) U/L ALT (21-72) U/L Alkaline Phosphatase (38-126) U/L Total Creatine Kinase 76 (55-170) U/L CK-MB (CK-2) 0.9 (0.0-2.4) ng/mL CK-MB (CK-2) Rel Index 1.2 Troponin I <0.012 (0.000-0.034) ng/mL Total Protein (6.3-8.2) g/dL Albumin (3.5-5.0) g/dL 09/26/17 09/26/17 Range/Units 11:25 11:25 WBC (3.8-10.6) k/uL RBC (4.30-5.90) m/uL Hgb (13.0-17.5) gm/dL Hct (39.0-53.0) % MCV (80.0-100.0) fL MCH (25.0-35.0) pg MCHC (31.0-37.0) g/dL RDW (11.5-15.5) % Plt Count (150-450) k/uL Neutrophils % % Lymphocytes % % Monocytes % % Eosinophils % % Basophils % % Neutrophils # (1.3-7.7) k/uL Lymphocytes # (1.0-4.8) k/uL Monocytes # (0-1.0) k/uL Eosinophils # (0-0.7) k/uL Basophils # (0-0.2) k/uL PT 10.1 (9.0-12.0) sec INR 1.0 (<1.2) APTT 23.1 (22.0-30.0) sec Sodium 145 (137-145) mmol/L Potassium 4.0 (3.5-5.1) mmol/L Chloride 111 H (98-107) mmol/L Carbon Dioxide 26 (22-30) mmol/L Anion Gap 8 mmol/L BUN 25 H (9-20) mg/dL Creatinine 1.30 H (0.66-1.25) mg/dL Est GFR (CKD-EPI)AfAm 60 (>60 ml/min/1.73 sqM) Est GFR (CKD-EPI)NonAf 52 (>60 ml/min/1.73 sqM) Glucose 144 H (74-99) mg/dL POC Glucose (mg/dL) (75-99) mg/dL POC Glu Mill Manager ID Calcium 9.0 (8.4-10.2) mg/dL Magnesium 1.9 (1.6-2.3) mg/dL Total Bilirubin 0.9 (0.2-1.3) mg/dL AST 16 L (17-59) U/L ALT 24 (21-72) U/L Alkaline Phosphatase 70 (38-126) U/L Total Creatine Kinase (55-170) U/L CK-MB (CK-2) (0.0-2.4) ng/mL CK-MB (CK-2) Rel Index Troponin I (0.000-0.034) ng/mL Total Protein 5.4 L (6.3-8.2) g/dL Albumin 3.2 L (3.5-5.0) g/dL Disposition Clinical Impression: Hypertensive urgency, CVA (cerebral vascular accident) Disposition: ADMITTED IP TO THIS HOSP Referrals: Warner Parada DO [Primary Care Provider] - 1-2 days Time of Disposition: 12:56
[2017-09-26 11:34] LABS: Glucose,Whole Blood 141 mg/dL (75-99)
--- NOTE | 2017-09-26 11:56 | CT ---
EXAMINATION TYPE: CT brain wo con DATE OF EXAM: 09/26/2017 COMPARISON: Previous brain MRI dated 12/11/2010. HISTORY: Weakness and slurred speech CT DLP: 1064.3 mGycm Automated exposure control for dose reduction was used. FINDINGS: There are generalized changes of sulcal prominence and ventriculomegaly, compatible with atrophic bre nge. There is diffuse periventricular white matter lucency, compatible with chronic white matter isch emic change. There is been a previous infarct in the [place] radiata on the left. There is no acute fo heaven lesion, mass effect or midline shift identified. I do not see evidence of intracranial blood. Visualized portions of the paranasal sinuses and mastoids are clear. The bony calvarium is intact. IMPRESSION: 1. NO ACUTE INTRACRANIAL ABNORMALITY. 2. EVIDENCE OF AN OLD INFARCT IN THE LEFT [facility] RADIATA. 3. DEGENERATIVE CHANGE.
[2017-09-26 12:00] LABS: Basophils % (A) 1 %; Eosinophils # (A) 0.2 k/uL (0-0.7); Eosinophils % (A) 3 %; HCT 38.6 % (39.0-53.0); HGB 13.2 gm/dL (13.0-17.5); Lymphocytes # (A) 1.7 k/uL (1.0-4.8); Lymphocytes % (A) 30 %; MCH 28.4 pg (25.0-35.0); MCHC 34.3 g/dL (31.0-37.0); MCV 82.7 fL (80.0-100.0); Mean Platelet Volume 8.3; Monocytes # (A) 0.4 k/uL (0-1.0); Monocytes % (A) 7 %; Neutrophils # (A) 3.2 k/uL (1.3-7.7); Neutrophils % (A) 57 %; Platelet Count 152 k/uL (150-450); RBC 4.66 m/uL (4.30-5.90); RDW 14.4 % (11.5-15.5); WBC 5.6 k/uL (3.8-10.6)
--- NOTE | 2017-09-26 12:11 | XR ---
EXAMINATION TYPE: XR chest 1V DATE OF EXAM: 09/26/2017 HISTORY: altered mental status. REFERENCE: Previous study dated 01/28/2016. FINDINGS: Heart size is upper limits of normal. The lungs are clear. Pleural spaces are clear. IMPRESSION: BORDERLINE CARDIOMEGALY.
[2017-09-26 12:12] LABS: Albumin 3.2 g/dL (3.5-5.0); Magnesium 1.9 mg/dL (1.6-2.3); Partial Thromboplastin Time 23.1 sec (22.0-30.0); Prothrombin Time 10.1 sec (9.0-12.0); Total Bilirubin 0.9 mg/dL (0.2-1.3); Total Protein 5.4 g/dL (6.3-8.2)
[2017-09-26 12:22] LABS: Creatine Kinase 76 U/L (55-170)
[2017-09-26] MEDS ORDERED: ENALAPRILAT 1.25 MG/ML 1 ML VIAL IVP STA (12:32)
[2017-09-26 12:34] LABS: Creatine Kinase MB 0.9 ng/mL (0.0-2.4); Troponin I <0.012 ng/mL (0.000-0.034)
[2017-09-26] MEDS ORDERED: ASPIRIN 325 MG TAB PO STA (12:56)
[2017-09-26] MEDS ORDERED: hydrALAZINE HCL 20 MG/ML 1 ML VIAL IVP PRN (14:32)
[2017-09-26] MEDS ORDERED: LOSARTAN 50 MG TAB PO SCH (14:45)
[2017-09-26 15:11] VITALS: BMI 26.5
[2017-09-26 16:02] LABS: Appearance,Urine Clear (Clear); Bilirubin,Urine Negative (Negative); Blood,Urine Negative (Negative); Color,Urine Light Yellow; Glucose,Urine (UA) Negative (Negative); Ketones,Urine Negative (Negative); Leukocyte Esterase,Urine Negative (Negative); Nitrite,Urine Negative (Negative); Protein,Urine 2+ (Negative); RBC,Urine <1 /hpf (0-5); Specific Gravity,Urine 1.009 (1.001-1.035); Urobilinogen,Urine <2.0 mg/dL (<2.0); WBC,Urine <1 /hpf (0-5)
--- NOTE | 2017-09-26 16:05 | P.CONS ---
History of Present Illness - Reason for Consult Consult date: 09/26/17 Stroke - Chief Complaint Dysarthria - History of Present Illness Is a pleasant 82-year-old male being evaluated by nephrology service for possible stroke. His significant history of hypertension, coronary artery disease with stent placement, previous CVAs, and diabetes. He was at home and in his normal state of health when his noticed slurred speech and right facial droop mostly of the mouth. he did have a mild droop from a previous stroke. He also now indicates that there is some numbness of the right lower face. He denies any headache or recent illness. He has been having some generalized weakness over the last few weeks. His blood pressure was quite elevated on presentation at 237/104. His CBC was normal. His glucose was 141. BUN was 25 and creatinine is 1.3. His EKG showed sinus bradycardia and some T -wave abnormalities. CT of the brain showed no acute intracranial abnormalities. At time my exam he is resting comfortably in bed in no acute distress. 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-uses cane , gout, hx skin cancer, prostate cancer 2016, 2 MONTHS OF RADIATION & hormone therapy JUNE 2016, uses CPAP, frequent constipation, decreased renal function-sees kidney History of Any Multi-Drug Resistant Organisms: None Reported Past Surgical History: Adenoidectomy, Heart Catheterization With Stent, Hernia Repair, Tonsillectomy Additional Past Surgical History / Comment(s): skin cancer removed from face, removal of kidney stone, hemorrhoidectomy, COLONOSCOPY, 3 stents Past Anesthesia/Blood Transfusion Reactions: Previous Problems w/ Anesthesia Additional Past Anesthesia/Blood Transfusion Reaction / Comm: "takes long to come out" Date of Last Stent Placement:: 09/23/16 Past Psychological History: No Psychological Hx Reported Smoking Status: Never smoker Past Alcohol Use History: None Reported Past Drug Use History: None Reported - Past Family History Mother Family Medical History: No Reported History Additional Family Medical History / Comment(s): heart disease, brain aneurysm Father Family Medical History: Diabetes Mellitus, Osteoarthritis (OA), Prostate Disorder Additional Family Medical History / Comment(s): heart disease Medications and Allergies Home Medications Medication Instructions Recorded Confirmed Type Aspirin [Adult Low Dose Aspirin EC] 81 mg PO HS 05/20/15 09/26/17 History Cholecalciferol [Vitamin D3] 2,000 unit PO DAILY@1200 05/20/15 09/26/17 History Clopidogrel [Plavix] 75 mg PO DAILY 05/20/15 09/26/17 History Ferrous Sulfate [Feosol] 325 mg PO DAILY@1200 05/20/15 09/26/17 History Fish Oil/Dha/Epa [Fish Oil 1,200 1 cap PO DAILY@1200 05/20/15 09/26/17 History mg Fish Oil] Losartan Potassium [Cozaar] 100 mg PO DAILY 05/20/15 09/26/17 History Lutein 20 mg PO DAILY@1200 05/20/15 09/26/17 History Omeprazole [PriLOSEC] 20 mg PO AC-BID 05/20/15 09/26/17 History Vitamin E (Dl,Tocopheryl Acet) 1,200 unit PO DAILY@1200 05/20/15 09/26/17 History [Vitamin E] amLODIPine [Norvasc] 10 mg PO DAILY 05/20/15 09/26/17 History glipiZIDE [Glucotrol] 10 mg PO AC-TID 05/20/15 09/26/17 History Levothyroxine Sodium [Synthroid] 50 mcg PO DAILY 01/28/16 09/26/17 History Metoprolol Tartrate [Lopressor] 100 mg PO BID 01/28/16 09/26/17 History Atorvastatin [Lipitor] 20 mg PO HS 06/30/16 09/26/17 History Saxagliptin HCl [Onglyza] 5 mg PO BID 09/18/16 09/26/17 History Furosemide [Lasix] 40 mg PO Q48H 06/23/17 09/26/17 History Insulin Glargine [Lantus] 14 unit SQ HS 06/23/17 09/26/17 History Potassium Chloride ER [K-Dur 20] 20 meq PO Q48H 09/26/17 09/26/17 History Allergies Allergy/AdvReac Type Severity Reaction Status Date / Time Iodinated Contrast- Oral and Allergy Dyspnea Verified 09/26/17 12:47 IV Dye Mushroom Allergy Nausea & Verified 09/26/17 12:47 Vomiting & Diarrhea shellfish derived [Shellfish] Allergy Dyspnea Verified 09/26/17 12:47 gluten AdvReac Unknown Verified 09/26/17 12:47 Physical Exam Vitals: Vital Signs Temp Pulse Resp BP Pulse Ox 09/26/17 13:40 48 L 18 156/77 96 09/26/17 13:15 97.9 F 45 L 20 161/73 97 09/26/17 13:10 48 L 18 158/80 97 09/26/17 12:52 45 L 20 182/86 97 09/26/17 12:40 44 L 16 198/92 98 09/26/17 12:10 46 L 18 214/91 98 09/26/17 12:00 44 L 16 237/104 95 09/26/17 11:55 44 L 18 242/109 98 09/26/17 11:40 44 L 20 237/104 96 09/26/17 11:25 40 L 16 246/114 97 09/26/17 11:19 96.9 F L 44 L 20 224/93 98 Intake and Output 09/26/17 09/26/17 09/26/17 06:59 14:59 22:59 Other: Weight 74.6 kg - Constitutional General appearance: average body habitus, cooperative, no acute distress - EENT Eyes: no abnormal pupil, EOMI, PERRLA, no ptosis ENT: hearing grossly normal - Neck Neck: normal ROM, no rigidity - Respiratory Respiratory: negative: prolonged expiration, prolonged inspiration - Cardiovascular Heart rate: 48 Rhythm: regular - Gastrointestinal Mild suprapubic tenderness General gastrointestinal: no distended, tenderness - Neurologic Patient is alert awake and oriented 3 mostly but little unsure about the exact date. Speech is dysarthric but language seems normal with some slowing of thought and speech. There is an obvious right-sided mouth droop. Decreased sensation of the right cheek and chin. Otherwise strength is full in bilateral upper extremities. There is no other sensory deficit. There is no pronator drift. Tremors or seizure-like activities are seen. There is no dysmetria. Results CBC & Chem 7: 09/26/17 11:25 09/26/17 11:25 Labs: Abnormal Lab Results - Last 24 Hours (Table) 09/26/17 09/26/17 09/26/17 Range/Units 11:17 11:25 11:25 Hct 38.6 L (39.0-53.0) % Chloride 111 H (98-107) mmol/L BUN 25 H (9-20) mg/dL Creatinine 1.30 H (0.66-1.25) mg/dL Glucose 144 H (74-99) mg/dL POC Glucose (mg/dL) 141 H (75-99) mg/dL AST 16 L (17-59) U/L Total Protein 5.4 L (6.3-8.2) g/dL Albumin 3.2 L (3.5-5.0) g/dL Assessment and Plan (1) Dysarthria Current Visit: Yes Status: Acute Code(s): R47.1 - DYSARTHRIA AND ANARTHRIA SNOMED Code(s): 8556836 (2) Facial droop Current Visit: Yes Status: Acute Code(s): R29.810 - FACIAL WEAKNESS SNOMED Code(s): 90784578 (3) History of stroke Current Visit: Yes Status: Chronic Code(s): Z86.73 - PRSNL HX OF TIA (TIA), AND CEREB INFRC W/O RESID DEFICITS SNOMED Code(s): 087044825 (4) Bradycardia Current Visit: Yes Status: Chronic Code(s): R00.1 - BRADYCARDIA, UNSPECIFIED SNOMED Code(s): 67017345 (5) Fatigue Current Visit: Yes Status: Chronic Code(s): R53.83 - OTHER FATIGUE SNOMED Code(s): 30559362 (6) Renal insufficiency Current Visit: Yes Status: Acute Code(s): N28.9 - DISORDER OF KIDNEY AND URETER, UNSPECIFIED SNOMED Code(s): 257367234 (7) Confusion Current Visit: Yes Status: Acute Code(s): R41.0 - DISORIENTATION, UNSPECIFIED SNOMED Code(s): 506084542 (8) Hypertensive urgency Current Visit: Yes Status: Acute Code(s): I16.0 - HYPERTENSIVE URGENCY SNOMED Code(s): 435348309 Plan: This patient with a stated history of previous strokes has symptoms consistent with a new stroke. He is also having a little confusion and fatigue. He was quite hypotensive and bradycardic. Recommend cardiology consultation. His CT made no mention of old infarct. I will order an MRI of the brain along with EEG , fasting lipid panel, and carotid Doppler. He is currently on aspirin, Plavix , and Lipitor. Recommend physical, occupational and speech therapy. Continue neurological checks. We will continue to follow and make recommendations based on the above studies. I have performed a history and physical on the above patient. I have reviewed the above note, and agree.
[2017-09-26 17:06] LABS: Cholesterol 122 mg/dL (<200); HDL Cholesterol 33 mg/dL (40-60); LDL Cholesterol,Calculated 55 mg/dL (0-99); Triglycerides 169 mg/dL (<150)
[2017-09-26] MEDS: PANTOPRAZOLE 40 MG TABLET PO SCH (18:33)
[2017-09-26] MEDS: CLOPIDOGREL 75 MG TAB PO SCH (18:33)
--- NOTE | 2017-09-26 20:02 | US ---
EXAMINATION TYPE: US carotid duplex BILAT DATE OF EXAM: 09/26/2017 COMPARISON: NONE CLINICAL HISTORY: 82-year-old male confusion, CVA TECHNIQUE: Carotid duplex ultrasound examination. Indirect Doppler criteria was utilized. FINDINGS: EXAM MEASUREMENTS: RIGHT: Peak Systolic Velocity (PSV) cm/sec ----- Right CCA: 65.3 ----- Right ICA: 62.5 ----- Right ECA: 145.7 ICA/CCA ratio: 1.0 RIGHT: End Diastole cm/sec ----- Right CCA: 7.1 ----- Right ICA: 18.6 ----- Right ECA: 5.7 LEFT: Peak Systolic Velocity (PSV) cm/sec ----- Left CCA: 64.7 ----- Left ICA: 75.7 ----- Left ECA: 119.4 ICA/CCA ratio: 1.2 LEFT: End Diastole cm/sec ----- Left CCA: 13.1 ----- Left ICA: 24.1 ----- Left ECA: 7.9 VERTEBRALS (direction of flow): Right Vertebral: Antegrade Left Vertebral: Antegrade Rhythm: Normal Mild plaque bilateral bifurcations. Slightly increased velocities right ECA IMPRESSION: No hemodynamically significant stenosis appreciated in either internal carotid artery. Criteria for Assigning % of Stenosis / Diameter reduction (Estimation based on the indirect measurements of the internal carotid artery velocities (ICA PSV). 1. Normal (no stenosis)=ICA PSV < 125 cm/s: ratio < 2.0: ICA EDV<40 cm/s. 2. Less than 50% stenosis=ICA PSV < 125 cm/s: ratio < 2.0: ICA EDV<40 cm/s. 3. 50 to 69% stenosis=ICA PSV of 125 to 230 cm/s: ration 2.0 ? 4.0: ICA EDV 40-100 cm/s. 4. Greater than 70% stenosis to near occlusion= ICA PSV > 230 cm/s: ratio > 4.0: ICA EDV > 100 cm/s. 5. Near occlusion= ICA PSV velocities may be low or undetectable: variable ratio and ICA EDV. 6. Total occlusion=unable to detect flow.
[2017-09-26 20:41] LABS: Glucose,Whole Blood 156 mg/dL (75-99)
[2017-09-26] MEDS: ATORVASTATIN 40 MG TAB PO SCH (20:41)
[2017-09-26] MEDS: METOPROLOL TARTRATE 50 MG TAB PO SCH (20:41)
[2017-09-26] MEDS: ASPIRIN 81 MG PO SCH (20:41)
[2017-09-26] MEDS ORDERED: INSULIN DETEMIR 100 UNIT/ML 10 ML VIAL SQ SCH (21:00)
[2017-09-27 06:02] LABS: Glucose,Whole Blood 74 mg/dL (75-99)
[2017-09-27 06:32] LABS: Basophils % (A) 1 %; Eosinophils # (A) 0.2 k/uL (0-0.7); Eosinophils % (A) 3 %; HCT 36.6 % (39.0-53.0); HGB 12.4 gm/dL (13.0-17.5); Lymphocytes # (A) 1.4 k/uL (1.0-4.8); Lymphocytes % (A) 25 %; MCHC 33.8 g/dL (31.0-37.0); Mean Platelet Volume 8.3; Monocytes # (A) 0.4 k/uL (0-1.0); Monocytes % (A) 7 %; Neutrophils # (A) 3.5 k/uL (1.3-7.7); Neutrophils % (A) 62 %; Platelet Count 149 k/uL (150-450); RBC 4.41 m/uL (4.30-5.90); RDW 14.6 % (11.5-15.5); WBC 5.6 k/uL (3.8-10.6)
[2017-09-27 06:43] LABS: Albumin 2.7 g/dL (3.5-5.0); Calcium 8.4 mg/dL (8.4-10.2); Potassium 3.7 mmol/L (3.5-5.1); Total Bilirubin 0.8 mg/dL (0.2-1.3); Total Protein 4.8 g/dL (6.3-8.2)
[2017-09-27] MEDS: LEVOTHYROXINE 50 MCG TAB PO SCH (06:51)
[2017-09-27] MEDS: PANTOPRAZOLE 40 MG TABLET PO SCH ×2 (07:11→16:43)
[2017-09-27] MEDS ORDERED: FUROSEMIDE 40 MG TAB PO SCH (09:00)
[2017-09-27] MEDS ORDERED: POTASSIUM CHLORIDE ER 20 MEQ TAB.ER PO SCH (09:00)
[2017-09-27] MEDS ORDERED: ASPIRIN 325 MG TAB PO SCH (09:00)
[2017-09-27] MEDS ORDERED: LINAGLIPTIN 5 MG TABLET PO SCH (09:00)
[2017-09-27] MEDS: amLODIPine 10 MG TAB PO SCH (09:13)
[2017-09-27] MEDS: CLOPIDOGREL 75 MG TAB PO SCH (09:13)
[2017-09-27] MEDS: LOSARTAN 50 MG TAB PO SCH (09:13)
[2017-09-27] MEDS: METOPROLOL TARTRATE 50 MG TAB PO SCH ×2 (09:14→21:24)
[2017-09-27 11:17] LABS: Glucose,Whole Blood 192 mg/dL (75-99)
[2017-09-27] MEDS: hydrALAZINE HCL 25 MG TAB PO SCH ×3 (11:26→21:24)
[2017-09-27] MEDS: VITAMIN E (DL,TOCOPHERYL ACET) 400 UNIT CAP PO SCH (11:26)
[2017-09-27] MEDS: CHOLECALCIFEROL 1,000 UNIT TAB PO SCH (11:26)
[2017-09-27] MEDS: FERROUS SULFATE 325 MG TAB PO SCH (11:27)
[2017-09-27] MEDS ORDERED: LUTEIN 20MG PO SCH (12:00)
[2017-09-27] MEDS ORDERED: FISH OIL 1200MG PO SCH (12:00)
[2017-09-27] MEDS ORDERED: ACETAMINOPHEN TAB 325 MG TAB PO PRN (14:59)
[2017-09-27] MEDS ORDERED: ONDANSETRON 4 MG/2 ML VIAL IVP PRN (14:59)
--- NOTE | 2017-09-27 14:59 | P.HPIM ---
History of Present Illness H&P Date: 09/27/17 Chief Complaint: Slurring of speech Years old male patient of Dr. Parada with past medical history of CVA/TIA, history of coronary artery disease status post-PCI of LAD 2016, hypertensive cardiovascular disease, chronic kidney disease, foot drop on the left type 2 diabetes, hyperlipidemia, hypertension, sleep apnea, hypothyroidism presents in yesterday with a blood pressure of 237/104. According to the at bedside symptoms started on Wednesday when patient had worsening of facial droop on the right with slurring of speech. Patient was unable to convey his heart's and was walking very slowly. He does have history of facial droop from his previous stroke. Depression the ER was as high as 246/114 which improved with Vasotec and hydralazine. Heart rate 52. Saturating well on room air. Hemoglobin 12.4, platelet 149, chloride 110, creatinine worsened from 1.3-1.59. Glucose is 72. Albumin 2.7, triglyceride 212. Neurology evaluated the patient and recommended MRI. Carotid ultrasound was negative for any carotid denies artery stenosis. Echocardiogram ordered. EEG ordered. He should initiate it on aspirin, Plavix and Lipitor 40 mg. Hydralazine 25 mg 4 times a day was initiated as patient's blood pressure continues to be high. Review of Systems Constitutional: Denies chills, Denies fever, endorsesmalaise, Denies poor appetite, endorses weakness, Denies weight loss Eyes: denies decreased vision, denies diplopia, denies discharge, denies pain Ears: deny: decreased hearing Ears, nose, mouth and throat: Denies dental pain, Denies headache, Denies nasal discharge, Denies nose pain Cardiovascular: Denies chest pain, Denies decreased exercise tolerance, Denies edema, Denies high blood pressure, Denies irregular heart beat, Denies palpitations, Denies paroxysmal nocturnal dyspnea, Denies rapid heart beat, Denies shortness of breath Respiratory: Denies congestion, Denies cough, Denies cough with sputum, Denies dyspnea, Denies home oxygen, Denies wheezing Gastrointestinal: Denies abdominal pain, Denies change in bowel habits, Denies coffee ground emesis, Denies early satiety, Denies excessive gas, Denies heartburn, Denies hematemesis, Denies hematochezia, Denies loss of appetite, Denies nausea, Denies vomiting Genitourinary: Denies dysuria, Denies flank pain, Denies kidney stones, Denies menorrhagia, Denies urgency, Denies urinary frequency Musculoskeletal: Denies gait dysfunction, Denies limitation of motion, Denies morning stiffness, Denies muscle cramps Integumentary: Denies rash, Denies wounds, Denies brittle nails, Denies change in hair/nails, Denies darkening of skin Neurological: Endorses balance difficulties, endorses change in speech, Denies double vision, endorses gait dysfunction, Denies loss of vision, Denies motor disturbance, endorses numbness in the fingers, Denies paralysis, Denies paresthesias, Denies seizures Psychiatric: Denies anxiety, Denies depression Endocrine: Denies excessive sweating, Denies excessive thirst, Denies high blood sugars, Denies palpitations Hematologic/Lymphatic: Denies easy bruising, Denies lymphadenopathy Past Medical History Past Medical History: No Reported History, Coronary Artery Disease (CAD), Cancer , Chest Pain / Angina, CVA/TIA, Diabetes Mellitus, Hearing Disorder / Deafness, Hyperlipidemia, Hypertension, Prostate Disorder, Renal Disease, Sleep Apnea/CPAP /BIPAP, Thyroid Disorder Additional Past Medical History / Comment(s): CVA- has weakness rt leg-uses cane , gout, hx skin cancer, prostate cancer 2016, 2 MONTHS OF RADIATION & hormone therapy JUNE 2016, uses CPAP, frequent constipation, decreased renal function-sees kidney History of Any Multi-Drug Resistant Organisms: None Reported Past Surgical History: Adenoidectomy, Heart Catheterization With Stent, Hernia Repair, Tonsillectomy Additional Past Surgical History / Comment(s): skin cancer removed from face, removal of kidney stone, hemorrhoidectomy, COLONOSCOPY, 3 stents Past Anesthesia/Blood Transfusion Reactions: Previous Problems w/ Anesthesia Additional Past Anesthesia/Blood Transfusion Reaction / Comment(s): "takes long to come out" Date of Last Stent Placement:: 09/23/16 Past Psychological History: No Psychological Hx Reported Smoking Status: Never smoker Past Alcohol Use History: None Reported Past Drug Use History: None Reported - Past Family History Mother Family Medical History: No Reported History Additional Family Medical History / Comment(s): heart disease, brain aneurysm Father Family Medical History: Diabetes Mellitus, Osteoarthritis (OA), Prostate Disorder Additional Family Medical History / Comment(s): heart disease Medications and Allergies Home Medications Medication Instructions Recorded Confirmed Type Aspirin [Adult Low Dose Aspirin EC] 81 mg PO HS 05/20/15 09/26/17 History Cholecalciferol [Vitamin D3] 2,000 unit PO DAILY@119905/20/15 09/26/17 History Clopidogrel [Plavix] 75 mg PO DAILY 05/20/15 09/26/17 History Ferrous Sulfate [Feosol] 325 mg PO DAILY@119905/20/15 09/26/17 History Fish Oil/Dha/Epa [Fish Oil 1,200 1 cap PO DAILY@119905/20/15 09/26/17 History mg Fish Oil] Losartan Potassium [Cozaar] 100 mg PO DAILY 05/20/15 09/26/17 History Lutein 20 mg PO DAILY@119905/20/15 09/26/17 History Omeprazole [PriLOSEC] 20 mg PO AC-BID 05/20/15 09/26/17 History Vitamin E (Dl,Tocopheryl Acet) 1,200 unit PO DAILY@119905/20/15 09/26/17 History [Vitamin E] amLODIPine [Norvasc] 10 mg PO DAILY 05/20/15 09/26/17 History glipiZIDE [Glucotrol] 10 mg PO AC-TID 05/20/15 09/26/17 History Levothyroxine Sodium [Synthroid] 50 mcg PO DAILY 01/28/16 09/26/17 History Metoprolol Tartrate [Lopressor] 100 mg PO BID 01/28/16 09/26/17 History Atorvastatin [Lipitor] 20 mg PO HS 06/30/16 09/26/17 History Saxagliptin HCl [Onglyza] 5 mg PO BID 09/18/16 09/26/17 History Furosemide [Lasix] 40 mg PO Q48H 06/23/17 09/26/17 History Insulin Glargine [Lantus] 14 unit SQ HS 06/23/17 09/26/17 History Potassium Chloride ER [K-Dur 20] 20 meq PO Q48H 09/26/17 09/26/17 History cloNIDine HCL [Catapres] 0.1 mg PO TID PRN 09/27/17 09/27/17 History Allergies Allergy/AdvReac Type Severity Reaction Status Date / Time Iodinated Contrast- Oral and Allergy Dyspnea Verified 07/08/18 12:47 IV Dye Mushroom Allergy Nausea & Verified 09/26/17 12:47 Vomiting & Diarrhea shellfish derived [Shellfish] Allergy Dyspnea Verified 09/26/17 12:47 gluten AdvReac Unknown Verified 09/26/17 12:47 Physical Exam Vitals: Vital Signs Temp Pulse Resp BP Pulse Ox 09/27/17 11:04 16 09/27/17 11:03 97.9 F 52 L 16 199/91 97 09/27/17 08:00 98 F 53 L 16 215/103 98 09/27/17 04:00 98.1 F 52 L 17 178/87 94 L 09/27/17 00:00 98.9 F 54 L 17 170/90 94 L 09/26/17 20:00 97.2 F L 53 L 16 186/77 98 09/26/17 14:20 95.5 F L 45 L 16 175/79 99 Intake and Output 09/26/17 09/27/17 09/27/17 22:59 06:59 14:59 Intake Total 480 20 250 Output Total 550 500 Balance 480 -530 -250 Intake: IV 20 10 Invasive Line 1 20 10 Oral 480 240 Output: Urine 550 500 Stool 0 Other: Voiding Method Urinal Urinal Urinal Diaper Diaper Diaper # Voids 1 2 Weight 75 kg - Constitutional General appearance: cooperative, no acute distress, thin-appearing male with facial droop on the right. - EENT Eyes: anicteric sclerae, PERRLA, normal appearance of nystagmus ENT: hearing grossly normal - Neck Neck: no lymphadenopathy, normal ROM, no other, no rigidity, no stridor, no thyromegaly - Respiratory Respiratory: bilateral: CTA, negative: diminished, dullness, rales, rhonchi - Cardiovascular Rhythm: regular Heart sounds: normal: S1, S2 Abnormal Heart Sounds: no systolic murmur, no diastolic murmur, no rub, no S3 Gallop, no S4 Gallop, no click, no other - Gastrointestinal General gastrointestinal: normal bowel sounds, soft nontender - Integumentary Integumentary: no rash - Neurologic Neurologic: Pupil equal and reactive to light, dysarthria on examination with the difficulty forming words, reflexes normal, mild sensation deficit in the fingers of the right hand, foot drop on the left which is chronic, finger-to- nose test normal - Musculoskeletal Musculoskeletal: gait normal, strength equal bilaterally - Psychiatric Psychiatric: A&O x's 2, appropriate affect Results CBC & Chem 7: 09/27/17 05:58 09/27/17 05:58 Labs: Abnormal Lab Results - Last 24 Hours (Table) 09/26/17 09/26/17 09/26/17 Range/Units 15:30 16:14 20:39 Hgb (13.0-17.5) gm/dL Hct (39.0-53.0) % Plt Count (150-450) k/uL Chloride (98-107) mmol/L BUN (9-20) mg/dL Creatinine (0.66-1.25) mg/dL Glucose (74-99) mg/dL POC Glucose (mg/dL) 156 H (75-99) mg/dL AST (17-59) U/L Total Protein (6.3-8.2) g/dL Albumin (3.5-5.0) g/dL Triglycerides 169 H (<150) mg/dL HDL Cholesterol 33 L (40-60) mg/dL Urine Protein 2+ H (Negative) 09/27/17 09/27/17 09/27/17 Range/Units 05:58 05:58 06:01 Hgb 12.4 L (13.0-17.5) gm/dL Hct 36.6 L (39.0-53.0) % Plt Count 149 L (150-450) k/uL Chloride 110 H (98-107) mmol/L BUN 24 H (9-20) mg/dL Creatinine 1.59 H (0.66-1.25) mg/dL Glucose 72 L (74-99) mg/dL POC Glucose (mg/dL) 74 L (75-99) mg/dL AST 14 L (17-59) U/L Total Protein 4.8 L (6.3-8.2) g/dL Albumin 2.7 L (3.5-5.0) g/dL Triglycerides 212 H (<150) mg/dL HDL Cholesterol 29 L (40-60) mg/dL Urine Protein (Negative) 09/27/17 Range/Units 11:14 Hgb (13.0-17.5) gm/dL Hct (39.0-53.0) % Plt Count (150-450) k/uL Chloride (98-107) mmol/L BUN (9-20) mg/dL Creatinine (0.66-1.25) mg/dL Glucose (74-99) mg/dL POC Glucose (mg/dL) 192 H (75-99) mg/dL AST (17-59) U/L Total Protein (6.3-8.2) g/dL Albumin (3.5-5.0) g/dL Triglycerides (<150) mg/dL HDL Cholesterol (40-60) mg/dL Urine Protein (Negative) Thrombosis Risk Factor Assmnt - DVT/VTE Prophylaxis DVT/VTE Prophylaxis: Pharmacologic Prophylaxis ordered Assessment and Plan Plan: #1 acute dysarthria likely secondary to stroke. Patient's acute onset of dysarthria with the facial droop likely secondary to a stroke though recrudescence is possible from history of previous strokes. CT was negative for any previous stroke. Carotid Doppler was negative for any occlusion echocardiogram ordered. MRI and EEG pending. Continue patient on aspirin, Lipitor and Plavix. #2 history of coronary artery disease post-PCI of LAD back in May 2015. Continue aspirin 81, Plavix 75, metoprolol 25 mg twice daily #3 hypertensive urgency Continue metoprolol 25 mg twice daily. Amlodipine 10 mg once daily. Hydralazine 25 mg 4 times a day added. Continue Lasix for the every 48 and losartan 100 mg daily Uses hydralazine as when necessary for systolic more than 160. #4 gout continue allopurinol 100 mg twice daily #5 history of hypothyroidism continue Synthyroid 50 g once daily #6 type 2 diabetes insulin dependent. Hypoglycemic event this morning Hold Lantus and tradjenta while in the hospital. Continue insulin sliding scale as needed #7 vitamin D deficiency continue vitamin D supplement #8 history of CVA in the past with minimal right-sided weakness. Continue aspirin and Plavix for secondary prevention. Carotid Dopplers negative echo pending. #9 DVT prophylaxis heparin every 12 subcu #10 GI prophylaxis continue Protonix 40 mg once daily #11 patient is a no code
--- NOTE | 2017-09-27 15:47 | P.PN ---
Subjective Progress Note Date: 09/27/17 Principal diagnosis: Dysarthria Is a pleasant 82-year-old male continuing to be evaluated by the neurology service for possible stroke. He has extensive medical history with numerous comorbidities. He presented due to noticing slurred speech and right facial droop. He also has some numbness of the right side of face. His blood pressures been quite elevated. He to the brain showed no acute intracranial abnormalities. MRI and EEG have been ordered. MRI of the brain has not been done yet. Time my exam is resting comfortably in bed in no acute distress. He said no new neurological symptoms since his admission. His carotid Doppler showed no hemodynamically significant stenosis Objective - Vital Signs Vital signs: Vital Signs Temp 97.9 F 09/27/17 11:03 Pulse 52 L 09/27/17 11:03 Resp 16 09/27/17 11:04 BP 199/91 09/27/17 11:03 Pulse Ox 97 09/27/17 11:03 Intake & Output 09/26/17 09/27/17 09/27/17 18:59 06:59 18:59 Intake Total 500 250 Output Total 0 550 500 Balance 0 -50 -250 Weight 74.6 kg 75 kg Intake: IV 20 10 Invasive Line 1 20 10 Oral 480 240 Output: Urine 0 550 500 Stool 0 0 Urine/Stool Mix 0 Emesis 0 Other: Voiding Method Urinal Urinal Urinal Diaper Diaper # Voids 0 2 # Bowel Movements 0 - Constitutional General appearance: Present: average body habitus, cooperative, no acute distress - EENT Eyes: Present: EOMI, PERRLA. Absent: abnormal pupil, ptosis ENT: Present: hard of hearing - Neck Neck: Present: normal ROM. Absent: rigidity - Respiratory Respiratory: negative: prolonged expiration, prolonged inspiration - Cardiovascular Rhythm: regular - Gastrointestinal General gastrointestinal: Absent: distended, tenderness - Neurologic Neurologic Comment(s): Patient is alert awake and oriented 3. Speech is still dysarthric. Language is normal. Right mouth droop. Decreased sensation of the right cheek and chin. There is no dysmetria. Overall strength is symmetrical bilateral upper lower extremities except for some mild left footdrop. - Labs CBC & Chem 7: 09/27/17 05:58 09/27/17 05:58 Labs: Abnormal Lab Results - Last 24 Hours (Table) 09/26/17 09/26/17 09/26/17 Range/Units 15:30 16:14 20:39 Hgb (13.0-17.5) gm/dL Hct (39.0-53.0) % Plt Count (150-450) k/uL Chloride (98-107) mmol/L BUN (9-20) mg/dL Creatinine (0.66-1.25) mg/dL Glucose (74-99) mg/dL POC Glucose (mg/dL) 156 H (75-99) mg/dL AST (17-59) U/L Total Protein (6.3-8.2) g/dL Albumin (3.5-5.0) g/dL Triglycerides 169 H (<150) mg/dL HDL Cholesterol 33 L (40-60) mg/dL Urine Protein 2+ H (Negative) 09/27/17 09/27/17 09/27/17 Range/Units 05:58 05:58 06:01 Hgb 12.4 L (13.0-17.5) gm/dL Hct 36.6 L (39.0-53.0) % Plt Count 149 L (150-450) k/uL Chloride 110 H (98-107) mmol/L BUN 24 H (9-20) mg/dL Creatinine 1.59 H (0.66-1.25) mg/dL Glucose 72 L (74-99) mg/dL POC Glucose (mg/dL) 74 L (75-99) mg/dL AST 14 L (17-59) U/L Total Protein 4.8 L (6.3-8.2) g/dL Albumin 2.7 L (3.5-5.0) g/dL Triglycerides 212 H (<150) mg/dL HDL Cholesterol 29 L (40-60) mg/dL Urine Protein (Negative) 09/27/17 Range/Units 11:14 Hgb (13.0-17.5) gm/dL Hct (39.0-53.0) % Plt Count (150-450) k/uL Chloride (98-107) mmol/L BUN (9-20) mg/dL Creatinine (0.66-1.25) mg/dL Glucose (74-99) mg/dL POC Glucose (mg/dL) 192 H (75-99) mg/dL AST (17-59) U/L Total Protein (6.3-8.2) g/dL Albumin (3.5-5.0) g/dL Triglycerides (<150) mg/dL HDL Cholesterol (40-60) mg/dL Urine Protein (Negative) Assessment and Plan (1) Dysarthria Current Visit: Yes Status: Acute Code(s): R47.1 - DYSARTHRIA AND ANARTHRIA SNOMED Code(s): 1949559 (2) Facial droop Current Visit: Yes Status: Acute Code(s): R29.810 - FACIAL WEAKNESS SNOMED Code(s): 70248913 (3) History of stroke Current Visit: Yes Status: Chronic Code(s): Z86.73 - PRSNL HX OF TIA (TIA), AND CEREB INFRC W/O RESID DEFICITS SNOMED Code(s): 369774515 (4) Bradycardia Current Visit: Yes Status: Chronic Code(s): R00.1 - BRADYCARDIA, UNSPECIFIED SNOMED Code(s): 63947551 (5) Fatigue Current Visit: Yes Status: Chronic Code(s): R53.83 - OTHER FATIGUE SNOMED Code(s): 18411045 (6) Renal insufficiency Current Visit: Yes Status: Acute Code(s): N28.9 - DISORDER OF KIDNEY AND URETER, UNSPECIFIED SNOMED Code(s): 239573938 (7) Confusion Current Visit: Yes Status: Acute Code(s): R41.0 - DISORIENTATION, UNSPECIFIED SNOMED Code(s): 301660261 (8) Hypertensive urgency Current Visit: Yes Status: Acute Code(s): I16.0 - HYPERTENSIVE URGENCY SNOMED Code(s): 850561044 Plan: This patient with a stated history of previous strokes has symptoms consistent with a new stroke. He is also having a little confusion and fatigue. He was quite hypotensive and bradycardic. Recommend cardiology consultation. His CT made no mention of old infarct. I did order an MRI of the brain along with EEG. He is currently on aspirin, Plavix, and Lipitor. Recommend physical, occupational and speech therapy. Continue neurological checks. please call us with any changes in his neurological status. I have performed a history and physical on the above patient. I have reviewed the above note, and agree.
[2017-09-27 16:00] LABS: Hemoglobin A1C 5.8 % (4.0-6.0)
[2017-09-27 16:29] LABS: Glucose,Whole Blood 185 mg/dL (75-99)
--- NOTE | 2017-09-27 17:25 | ECHOF ---
Referral Reason:stroke MEASUREMENTS -------- HEIGHT: 167.6 cm WEIGHT: 74.8 kg BP: 178/87 IVSd: 1.5 cm (0.6 - 1.1) LVIDd: 5.0 cm (3.9 - 5.3) LVPWd: 1.4 cm (0.6 - 1.1) IVSs: 1.9 cm LVIDs: 3.7 cm LVPWs: 1.8 cm LA Diam: 3.9 cm (2.7 - 3.8) RVIDd: 2.8 cm (< 3.3) LAESV Index (A-L): 27.79 ml/m Ao Diam: 3.0 cm (2.0 - 3.7) AV Cusp: 2.1 cm (1.5 - 2.6) EPSS: 1.2 cm MV E Charan: 0.78 m/s MV DecT: 404 ms MV A Charan: 0.94 m/s MV E/A Ratio: 0.82 AR PHT: 758 ms MV EF SLOPE: 16.99 mm/s (70 - 150) MV EXCURSION: 15.18 mm (> 18.000) FINDINGS -------- Sinus rhythm. This was a technically good study. The left ventricular size is normal. There is moderate concentric left ventricular hypertrophy. O verall left ventricular systolic function is normal with, an EF between 55 - 60 %. The right ventricle is normal in size. Normal LA size by volume 22+/-6 ml/m2. The right atrium is normal in size. There is mild aortic valve sclerosis. There is mild aortic regurgitation. Mild mitral annular calcification present. Mild mitral regurgitation is present. The tricuspid valve appears structurally normal. Trace/mild (physiologic) pulmonic regurgitation. The aortic root size is normal. Normal inferior vena cava with normal inspiratory collapse consistent with estimated right atrial pre ssure of 5 mmHg. There is no pericardial effusion. CONCLUSIONS -------- 1. Sinus rhythm. 2. This was a technically good study. 3. The left ventricular size is normal. 4. There is moderate concentric left ventricular hypertrophy. 5. Overall left ventricular systolic function is normal with, an EF between 55 - 60 %. 6. The right ventricle is normal in size. 7. Normal LA size by volume 22+/-6 ml/m2. 8. The right atrium is normal in size. 9. There is mild aortic valve sclerosis. 10. There is mild aortic regurgitation. 11. Mild mitral annular calcification present. 12. Mild mitral regurgitation is present. 13. The tricuspid valve appears structurally normal. 14. Trace/mild (physiologic) pulmonic regurgitation. 15. The aortic root size is normal. 16. Normal inferior vena cava with normal inspiratory collapse consistent with estimated right atrial pressure of 5 mmHg. 17. There is no pericardial effusion. MAINTENANCE SERVICE SUPERVISOR: Michelle Dickens RDCS
[2017-09-27 21:14] LABS: Glucose,Whole Blood 208 mg/dL (75-99)
[2017-09-27] MEDS: ASPIRIN 81 MG PO SCH (21:24)
[2017-09-27] MEDS: ATORVASTATIN 40 MG TAB PO SCH (21:24)
[2017-09-27] MEDS: HEPARIN SODIUM,PORCINE 5,000 UNIT/ML 1 ML VIAL SQ SCH (21:34)
[2017-09-28 06:01] LABS: Glucose,Whole Blood 125 mg/dL (75-99)
[2017-09-28] MEDS: PANTOPRAZOLE 40 MG TABLET PO SCH (06:13)
[2017-09-28] MEDS: LEVOTHYROXINE 50 MCG TAB PO SCH (06:14)
[2017-09-28 06:28] LABS: Basophils # (A) 0.1 k/uL (0-0.2); Basophils % (A) 1 %; Eosinophils # (A) 0.2 k/uL (0-0.7); Eosinophils % (A) 3 %; HCT 39.8 % (39.0-53.0); HGB 13.4 gm/dL (13.0-17.5); Lymphocytes # (A) 1.6 k/uL (1.0-4.8); Lymphocytes % (A) 27 %; MCH 28.1 pg (25.0-35.0); MCHC 33.7 g/dL (31.0-37.0); MCV 83.4 fL (80.0-100.0); Mean Platelet Volume 8.5; Monocytes # (A) 0.4 k/uL (0-1.0); Monocytes % (A) 8 %; Neutrophils # (A) 3.3 k/uL (1.3-7.7); Neutrophils % (A) 58 %; Platelet Count 158 k/uL (150-450); RBC 4.77 m/uL (4.30-5.90); RDW 14.6 % (11.5-15.5); WBC 5.7 k/uL (3.8-10.6)
[2017-09-28 06:38] LABS: Albumin 3.1 g/dL (3.5-5.0); Calcium 8.5 mg/dL (8.4-10.2); Potassium 3.9 mmol/L (3.5-5.1); Total Bilirubin 0.7 mg/dL (0.2-1.3); Total Protein 5.3 g/dL (6.3-8.2)
[2017-09-28] MEDS: CLOPIDOGREL 75 MG TAB PO SCH (10:13)
[2017-09-28] MEDS: amLODIPine 10 MG TAB PO SCH (10:13)
[2017-09-28] MEDS: hydrALAZINE HCL 25 MG TAB PO SCH (10:13)
[2017-09-28] MEDS: HEPARIN SODIUM,PORCINE 5,000 UNIT/ML 1 ML VIAL SQ SCH (10:13)
[2017-09-28] MEDS: LOSARTAN 50 MG TAB PO SCH (10:14)
[2017-09-28] MEDS: METOPROLOL TARTRATE 50 MG TAB PO SCH (10:14)
[2017-09-28] MEDS: FERROUS SULFATE 325 MG TAB PO SCH (10:14)
[2017-09-28] MEDS: CHOLECALCIFEROL 1,000 UNIT TAB PO SCH (10:16)
[2017-09-28] MEDS: VITAMIN E (DL,TOCOPHERYL ACET) 400 UNIT CAP PO SCH (10:17)
[2017-09-28 11:18] LABS: Glucose,Whole Blood 169 mg/dL (75-99)
--- NOTE | 2017-09-28 11:24 | MR ---
MR brain without contrast HISTORY: Dysarthria, right facial droop Multiplanar multisequence imaging through the brain and correlated to prior brain MRI dated 01/26/2011 There is no restricted diffusion. There is no hemorrhage or hydrocephalus. Cortical atrophy is noted. Confluent and subcortical and periventricular scattered hyperintensities are present on inversion re covery and T2-weighted sequences. Focal encephalomalacia present in the periventricular white matter on the left compatible with chronic infarct. There are normal vascular flow voids. Cerebellopontine a ngles, corpus callosum, pituitary, cervical medullary junction are within normal limits. IMPRESSION: Cortical atrophy and chronic small vessel ischemic changes, prior infarct as noted on maynor or exam.
[2017-09-28] MEDS ORDERED: hydrALAZINE HCL 25 MG TAB PO STA (12:23)
[2017-09-28] MEDS ORDERED: FUROSEMIDE 40 MG TAB PO STA (12:24)
[2017-09-28] MEDS ORDERED: hydrALAZINE HCL 50 MG TAB PO SCH (13:00)
[2017-09-28 15:57] VITALS: BP 164/81; RESP 18; TEMP 98.1
[2017-09-28 16:00] VITALS: PULSE 59
[2017-09-28 16:43] LABS: Glucose,Whole Blood 145 mg/dL (75-99)
--- NOTE | 2017-09-30 10:29 | CDI ---
Last Revision, February 2017 Documentation Clarification Form Date: 09/30/17 From: Dorothy Teddy Nida Haas, Edge Stainer Hours-8:30 am & 5 pm [place] Admit Date: 09/26/2017 12:57:00 PM Patient Name: Michael Avelar Visit Number: [id number] Discharge Date: 09/28/17 ATTENTION: The Clinical Documentation Specialists (CDI) and [facility] Coding Staff appreciate your assistance in clarifying documentation. Please respond to the clarification below the line at the bottom and electronically sign. The CDI & [facility] Coding staff will review the response and follow-up if needed. Please note: Queries are made part of the Legal Health Record. If you have any questions, please contact the author of this message via ITS. Dr. Tommy Melchor Per H&P patient has history of CKD. History/Risk Factors: stroke, HTN, CVD, DM, sleep apnea, hypothyroidism Current BUN: 25, 24, 23 Current CR: 1.30, 1.59, 1.42 Current GFR: 52, 41, 47 Patients Baseline: BUN/CR/GFR: unknown In order to capture the severity of condition, please clarify if the condition signifies: CKD ruled out CKD Stage 1 (GFR > 90) CKD Stage 2 (GFR 60-89) CKD Stage 3 (GFR 30-59) CKD Stage 4 (GFR 15-29) CKD Stage 5 (GFR <15) ESRD Other, please specify Unable to determine Please continue to document in your progress notes and discharge summary in order to capture severity of illness and risk of mortality. Include clinical findings that support your diagnosis. MTDD
--- NOTE | 2017-10-05 14:38 | P.DS ---
Providers Date of admission: 09/26/17 12:57 Expected date of discharge: 09/28/17 Attending physician: Tommy Melchor MD Consults: 09/26/17 12:58 Consult Physician Routine Consulting Provider: Kellen Astudillo Consult Reason/Comments: CVA Do you want consulting provider notified?: Yes Primary care physician: Warner BaezTal [facility]: 82-year-old male patient of Dr. Parada with past medical history of CVA/TIA, history of coronary artery disease status post-PCI of LAD 2015, hypertensive cardiovascular disease, chronic kidney disease, foot drop on the left type 2 diabetes, hyperlipidemia, hypertension, sleep apnea, hypothyroidism presents in yesterday with a blood pressure of 237/104. According to the at bedside symptoms started on Wednesday when patient had worsening of facial droop on the right with slurring of speech. Patient was unable to convey his heart's and was walking very slowly. He does have history of facial droop from his previous stroke. Depression the ER was as high as 246/114 which improved with Vasotec and hydralazine. Heart rate 52. Saturating well on room air. Hemoglobin 12.4, platelet 149, chloride 110, creatinine worsened from 1.3-1.59. Glucose is 72. Albumin 2.7, triglyceride 212. Neurology evaluated the patient and recommended MRI. Carotid ultrasound was negative for any carotid denies artery stenosis. Echocardiogram ordered. EEG ordered. He should initiate it on aspirin, Plavix and Lipitor 40 mg. Hydralazine 25 mg 4 times a day was initiated as patient's blood pressure continues to be high. 09/28: Echocardiogram reveals EF of 55-60% with moderate concentric left ventricle hypertrophy, mild aortic valve sclerosis, mild aortic regurgitation, mild mitral regurgitation. MRI of the brain reveals cortical atrophy and chronic small vessel ischemic changes, prior infarct. EEG was performed and report is pending. Patient is followed by neurology. Patient is currently on aspirin and Plavix and Lipitor. Heart rate is running in the 50s and 60s. Pulse ox 97% on room air. Patient's been afebrile. Speech therapy continues to follow the patient. PT and OT were on hold yesterday due to elevated blood pressure and can fall patient today. They have subsequently assessed the patient and recommended home with homecare. Patient will be discharged home today in stable condition. Discharge diagnoses: #1 acute dysarthria likely secondary to post stroke recrudescence (PSR) #2 history of coronary artery disease post-PCI of LAD back in May 2015. #3 hypertensive emergency #4 gout stable #5 hypothyroidism #6 type 2 diabetes insulin dependent. #7 vitamin D deficiency #8 history of CVA in the past with minimal right-sided weakness. 9. Chronic kidney disease stage III Discharge plan: Impression and plan of care have been directed as dictated by the signing physician. Maria Guadalupe Borrero nurse practitioner acting as scribe for signing physician. Patient Condition at Discharge: Good Plan - Discharge Summary Discharge Rx Participant: No New Discharge Prescriptions: New RX: hydrALAZINE HCL [Apresoline] 50 mg PO QID #120 tab Continue RX: Vitamin E (Dl,Tocopheryl Acet) [Vitamin E] 1,200 unit PO DAILY@1200 RX: Omeprazole [PriLOSEC] 20 mg PO AC-BID RX: Fish Oil/Dha/Epa [Fish Oil 1,200 mg Fish Oil] 1 cap PO DAILY@1200 RX: Lutein 20 mg PO DAILY@1200 RX: Losartan Potassium [Cozaar] 100 mg PO DAILY RX: glipiZIDE [Glucotrol] 10 mg PO AC-TID RX: Ferrous Sulfate [Feosol] 325 mg PO DAILY@1200 RX: Clopidogrel [Plavix] 75 mg PO DAILY RX: Cholecalciferol [Vitamin D3] 2,000 unit PO DAILY@1200 RX: Aspirin [Adult Low Dose Aspirin EC] 81 mg PO HS RX: amLODIPine [Norvasc] 10 mg PO DAILY RX: Metoprolol Tartrate [Lopressor] 100 mg PO BID RX: Levothyroxine Sodium [Synthroid] 50 mcg PO DAILY RX: Atorvastatin [Lipitor] 20 mg PO HS RX: Saxagliptin HCl [Onglyza] 5 mg PO BID RX: Potassium Chloride ER [K-Dur 20] 20 meq PO Q48H Changed RX: Furosemide [Lasix] 40 mg PO DAILY #0 Discontinued Insulin Glargine [Lantus] 14 unit SQ HS cloNIDine HCL [Catapres] 0.1 mg PO TID PRN PRN Reason: Systolic over 180 Discharge Medication List RX: Aspirin [Adult Low Dose Aspirin EC] 81 mg PO HS 05/20/15 [History] RX: Cholecalciferol [Vitamin D3] 2,000 unit PO DAILY@1200 05/20/15 [History] RX: Clopidogrel [Plavix] 75 mg PO DAILY 05/20/15 [History] RX: Ferrous Sulfate [Feosol] 325 mg PO DAILY@1200 05/20/15 [History] RX: Fish Oil/Dha/Epa [Fish Oil 1,200 mg Fish Oil] 1 cap PO DAILY@1200 05/20/15 [ History] RX: Losartan Potassium [Cozaar] 100 mg PO DAILY 05/20/15 [History] RX: Lutein 20 mg PO DAILY@1200 05/20/15 [History] RX: Omeprazole [PriLOSEC] 20 mg PO AC-BID 05/20/15 [History] RX: Vitamin E (Dl,Tocopheryl Acet) [Vitamin E] 1,200 unit PO DAILY@1199 [History] RX: amLODIPine [Norvasc] 10 mg PO DAILY 05/20/15 [History] RX: glipiZIDE [Glucotrol] 10 mg PO AC-TID 05/20/15 [History] RX: Levothyroxine Sodium [Synthroid] 50 mcg PO DAILY 01/28/16 [History] RX: Metoprolol Tartrate [Lopressor] 100 mg PO BID 01/28/16 [History] RX: Atorvastatin [Lipitor] 20 mg PO HS 06/30/16 [History] RX: Saxagliptin HCl [Onglyza] 5 mg PO BID 09/18/16 [History] RX: Potassium Chloride ER [K-Dur 20] 20 meq PO Q48H 09/26/17 [History] RX: Furosemide [Lasix] 40 mg PO DAILY #0 09/28/17 [Rx] RX: hydrALAZINE HCL [Apresoline] 50 mg PO QID #120 tab 09/28/17 [Rx] Follow up Appointment(s)/Referral(s): Kellen Astudillo MD [STAFF PHYSICIAN] - 2 Weeks (Office to call with follow up appointment.) Warner Parada DO [Primary Care Provider] - 1-2 Days (Office will call you with follow up appointment.) Patient Instructions/Handouts: DASH Eating Plan (DC), Hypertensive Crisis (DC) , Stroke (DC) Discharge Disposition: HOME SELF-CARE
== END 2017-09-28 16:44 | disposition home or self-care (01) | DRG 57 ==
LOC: EC 11:11 → 6SEL 12:57
PROVIDERS: ADMIT Internal Medicine; ATTEND Internal Medicine
DX: I69.322 Dysarthria following cerebral infarction (principal); I69.951 Hemiplegia and hemiparesis following unspecified cerebrovascular disease affecting right dominant side; I16.0 Hypertensive urgency; E11.22 Type 2 diabetes mellitus with diabetic chronic kidney disease; E11.649 Type 2 diabetes mellitus with hypoglycemia without coma; N18.3 Chronic kidney disease, stage 3 (moderate); I13.10 Hypertensive heart and chronic kidney disease without heart failure, with stage 1 through stage 4 chronic kidney disease, or unspecified chronic kidney disease; I69.392 Facial weakness following cerebral infarction; I08.0 Rheumatic disorders of both mitral and aortic valves; M21.372 Foot drop, left foot; R40.2142 Coma scale, eyes open, spontaneous, at arrival to emergency department; R40.2362 Coma scale, best motor response, obeys commands, at arrival to emergency department; R40.2252 Coma scale, best verbal response, oriented, at arrival to emergency department; R29.702 NIHSS score 2; H91.90 Unspecified hearing loss, unspecified ear; E03.9 Hypothyroidism, unspecified; E55.9 Vitamin D deficiency, unspecified; I25.10 Atherosclerotic heart disease of native coronary artery without angina pectoris; E78.5 Hyperlipidemia, unspecified; G47.30 Sleep apnea, unspecified; M10.9 Gout, unspecified; K59.00 Constipation, unspecified; Z79.82 Long term (current) use of aspirin; Z79.02 Long term (current) use of antithrombotics/antiplatelets; Z79.4 Long term (current) use of insulin; Z79.890 Hormone replacement therapy; Z79.899 Other long term (current) drug therapy; Z85.828 Personal history of other malignant neoplasm of skin; Z95.5 Presence of coronary angioplasty implant and graft; Z85.46 Personal history of malignant neoplasm of prostate; Z87.442 Personal history of urinary calculi; Z92.3 Personal history of irradiation; Z91.041 Radiographic dye allergy status; Z91.013 Allergy to seafood; Z91.018 Allergy to other foods; Z82.49 Family history of ischemic heart disease and other diseases of the circulatory system; Z82.61 Family history of arthritis; Z84.2 Family history of other diseases of the genitourinary system; Z83.3 Family history of diabetes mellitus
CPT/HCPCS: 36415; 70450; 70551; 71045; 80053; 80061; 81001; 82550; 82553; 83036; 83090; 83735; 84484; 85025; 85610; 85730; 87040; 93005; 93306; 93880; 95819; 96361; 96374; 96375; 96376; 99285

== ENCOUNTER → 2018-01-20 | Outpatient (CLI) | payer MEDICARE, BC ==
[2018-01-20 17:22] LABS: ALT 16 U/L (10-49); AST 17 U/L (14-35); Albumin/Globulin Ratio 2.28 (1.20-2.10); Alkaline Phosphatase 64 U/L (41-126); Calcium 9.1 mg/dL (8.7-10.3); Carbon Dioxide 26.2 mmol/L (21.6-31.8); Chloride 111 mmol/L (96-109); Cholesterol 138 mg/dL (0-200); Globulin 1.8 g/dL (2.1-3.7); Glucose 151 mg/dL (70-110); LDL Cholesterol,Calculated 46.2 mg/dL (0.0-131.0); Potassium 3.6 mmol/L (3.5-5.5); Sodium 146 mmol/L (135-145); Total Bilirubin 1.1 mg/dL (0.3-1.2); Total Protein 5.9 g/dL (6.2-8.2)
[2018-01-20 18:00] LABS: Prostate Specific Antigen <0.1 ng/mL (0.0-6.5)
[2018-01-20 19:21] LABS: Hemoglobin A1C 6.1 % (4.0-6.0)
== END | disposition home or self-care (01) ==
LOC: LABWHC1 10:30
PROVIDERS: ATTEND Urology
DX: C61 Malignant neoplasm of prostate (principal); E78.2 Mixed hyperlipidemia; E11.65 Type 2 diabetes mellitus with hyperglycemia
CPT/HCPCS: 36415; 80053; 80061; 82043; 82570; 83036; 84153; 84403

== ENCOUNTER → 2018-05-06 | Outpatient (CLI) | payer MEDICARE, BC ==
[2018-05-06 18:53] LABS: Albumin 4.2 g/dL (3.80-4.90); Albumin/Globulin Ratio 2.21 (1.60-3.17); Anion Gap 8.2 mmol/L (4.00-12.00); Calcium 9.5 mg/dL (8.7-10.3); Carbon Dioxide 27.8 mmol/L (21.6-31.8); Globulin 1.9 g/dL (1.6-3.3); Total Bilirubin 0.6 mg/dL (0.3-1.2); Total Protein 6.1 g/dL (6.2-8.2)
[2018-05-06 22:30] LABS: Hemoglobin A1C 6.5 % (4.0-6.0)
== END | disposition home or self-care (01) ==
LOC: LABWHC1 14:29
PROVIDERS: ATTEND Internal Medicine Endocrinology, Diabetes & Metabolism
DX: E11.9 Type 2 diabetes mellitus without complications (principal); E03.8 Other specified hypothyroidism
CPT/HCPCS: 36415; 80053; 82043; 82570; 83036; 84443

== ENCOUNTER → 2018-07-21 | Outpatient (CLI) | payer MEDICARE, BC | END | disposition home or self-care (01) | LOC: LABWHC1 12:03 | PROVIDERS: ATTEND Urology | DX: C61 Malignant neoplasm of prostate (principal) | CPT/HCPCS: 36415; 84153; 84403 ==

== ENCOUNTER → 2018-09-07 | Outpatient (CLI) | payer MEDICARE, BC ==
[2018-09-07 14:06] LABS: HCT 37.2 % (39.0-53.0); HGB 12.5 gm/dL (13.0-17.5); MCH 29.4 pg (25.0-35.0); MCHC 33.5 g/dL (31.0-37.0); MCV 87.7 fL (80.0-100.0); Mean Platelet Volume 8.1; Platelet Count 245 k/uL (150-450); RBC 4.24 m/uL (4.30-5.90); RDW 14.5 % (11.5-15.5); WBC 8.8 k/uL (3.8-10.6)
[2018-09-07 18:37] LABS: African American GFR (CKD) 31.4 (60.0-200.0); Albumin 4.2 g/dL (3.80-4.90); Anion Gap 11.5 mmol/L (4.00-12.00); BUN/Creat Ratio 15.91 Ratio (12.00-20.00); Calcium 9.7 mg/dL (8.7-10.3); Carbon Dioxide 26.5 mmol/L (21.6-31.8); Phosphorus 3.5 mg/dL (2.4-5.1); Potassium 4.1 mmol/L (3.5-5.5)
[2018-09-07 19:31] LABS: Iron Saturation 23.79 (15.00-50.00)
== END | disposition home or self-care (01) ==
LOC: LABWHC1 13:07
PROVIDERS: ATTEND Nurse Practitioner Family
DX: N18.3 Chronic kidney disease, stage 3 (moderate) (principal)
CPT/HCPCS: 36415; 80069; 82728; 83540; 83550; 85027

== ENCOUNTER 2018-10-15 19:53 | Emergency (ER) | payer MEDICARE, BC ==
[2018-10-15 21:00] VITALS: TEMP 98.5
--- NOTE | 2018-10-15 21:57 | ED ---
Fall HPI - General Chief Complaint: Fall Stated Complaint: Fall Time Seen by Provider: 10/15/18 20:48 Source: EMS, RN notes reviewed Mode of arrival: EMS - History of Present Illness Initial Comments: 83-year-old male presenting after mechanical fall at his inpatient rehab Center. Patient's was at bedside and states that she had just left when nursing staff told her he attempted to stand up from his chair, falling forward and striking his head on the floor. She states nursing staff was there directly after his fall and there was no LOC. Patient is on heparin and Plavix. Patient's states the fall happened about 2 hours prior and he is currently at his baseline. Patient is at the inpatient rehab Center for encephalopathy secondary to a hypertensive urgency. She states he had a long hospitalization and has not since recovered. He is baseline A and O 2. - Related Data Home Medications Medication Instructions Recorded Confirmed Aspirin [Adult Low Dose Aspirin EC] 81 mg PO HS@1700 05/20/15 10/15/18 Cholecalciferol [Vitamin D3 (25 2,000 unit PO DAILY@1700 05/20/15 10/15/18 Mcg = 1000 Iu)] Clopidogrel [Plavix] 75 mg PO DAILY@0800 05/20/15 10/15/18 Ferrous Sulfate [Feosol] 325 mg PO DAILY@0800 05/20/15 10/15/18 Metoprolol Tartrate [Lopressor] 75 mg PO BID@0800,2100 01/28/16 10/15/18 Atorvastatin [Lipitor] 20 mg PO HS@2100 06/30/16 10/15/18 Allopurinol [Zyloprim] 150 mg PO DAILY@0800 10/15/18 10/15/18 Bisacodyl [Dulcolax] 10 mg RECTAL DAILY PRN 10/15/18 10/15/18 Heparin Sodium,Porcine [Heparin 5,000 unit SQ TID@0600,1400,209910/15/18 10/15/18 Sodium] INSULIN ASPART (NovoLOG) [NovoLOG See Protocol SQ AC-TID 10/15/18 10/15/18 (formulary)] Insulin Glargine [Lantus] 8 unit SQ HS@2100 10/15/18 10/15/18 Ipratropium-Albuterol Nebulize 3 ml INHALATION RT-Q4H PRN 10/15/18 10/15/18 [Duoneb 0.5 mg-3 mg/3 ml Soln] Isosorbide Mononitrate ER [Imdur] 30 mg PO BID@0800,17010/15/18 10/15/18 Latanoprost/Pf [Latanoprost 0.005% 1 drop BOTH EYES HS@209910/15/18 10/15/18 Eye Drop] Magnesium Hydroxide [Milk of 7,200 mg PO DAILY PRN 10/15/18 10/15/18 Magnesia Concentrate] NIFEdipine [NIFEdipine ER] 60 mg PO BID@0800,209910/15/18 10/15/18 Na Phos,M-B/Na Phos,Di-Ba [Fleet 133 ml RECTAL DAILY PRN 10/15/18 10/15/18 Adult] Nitroglycerin Sl Tabs [Nitrostat] 0.4 mg SUBLINGUAL Q5M PRN 10/15/18 10/15/18 Humboldt-3 Fatty Acids [[place]t-3] 1,000 mg PO DAILY@169910/15/18 10/15/18 Pantoprazole Sodium [Protonix] 40 mg PO DAILY@0610/15/18 10/15/18 Polyethylene Glycol 3350 [Miralax] 17 gm PO DAILY@79910/15/18 10/15/18 Sennosides-Docusate Sodium 1 tab PO HS@209910/15/18 10/15/18 [Senokot-S] Tamsulosin [Flomax] 0.4 mg PO DAILY@0810/15/18 10/15/18 Vitamin E (Dl,Tocopheryl Acet) 800 unit PO DAILY@169910/15/18 10/15/18 [Vitamin E] carBAMazepine [TEGretol] 400 mg PO BID@0800,209910/15/18 10/15/18 cloNIDine HCL [Catapres] 0.1 mg PO Q8H PRN 10/15/18 10/15/18 hydrALAZINE HCL [Apresoline] 100 mg PO TID@0600,1400,209910/15/18 10/15/18 Allergies Allergy/AdvReac Type Severity Reaction Status Date / Time Iodinated Contrast- Oral and Allergy Dyspnea Verified 10/15/18 19:59 IV Dye Mushroom Allergy Nausea & Verified 10/15/18 19:59 Vomiting & Diarrhea shellfish derived [Shellfish] Allergy Dyspnea Verified 10/15/18 19:59 gluten AdvReac Unknown Verified 10/15/18 19:59 Review of Systems ROS Statement: Those systems with pertinent positive or pertinent negative responses have been documented in the HPI. Review of Systems Constitutional: Denies fever, chills Eyes: Denies change in vision, Denies pain Ears, nose, mouth, throat: Denies headaches, Denies sore throat Cardiovascular: Denies chest pain. Denies palpitations Respiratory: Denies shortness of breath, Denies cough Gastrointestinal: Denies abdominal pain. Denies nausea, vomiting, diarrhea. Genitourinary: Denies hematuria, Denies infections Musculoskeletal: Denies pain, Denies swelling Integumentary: Denies rash Neurological: Denies headache, focal weakness, focal numbness Psychiatric: Denies anxiety, Denies depression Hematologic/Lymphatic: Denies easy bleeding or bruising ROS Other: All systems not noted in ROS Statement are negative. Past Medical History Past Medical History: Coronary Artery Disease (CAD), Cancer, Chest Pain / Angina, CVA/TIA, Diabetes Mellitus, Hearing Disorder / Deafness, Hyperlipidemia, Hypertension, Prostate Disorder, Renal Disease, Sleep Apnea/CPAP/BIPAP, Thyroid Disorder Additional Past Medical History / Comment(s): CVA- has weakness rt leg-uses cane , gout, hx skin cancer, prostate cancer 2016, 2 MONTHS OF RADIATION & hormone therapy JUNE 2016, uses CPAP, frequent constipation, decreased renal function- sees kidney History of Any Multi-Drug Resistant Organisms: None Reported Past Surgical History: Adenoidectomy, Heart Catheterization With Stent, Hernia R epair, Tonsillectomy Additional Past Surgical History / Comment(s): skin cancer removed from face, removal of kidney stone, hemorrhoidectomy, COLONOSCOPY, 3 stents Past Anesthesia/Blood Transfusion Reactions: Previous Problems w/ Anesthesia Additional Past Anesthesia/Blood Transfusion Reaction / Comment(s): "takes long to come out" Date of Last Stent Placement:: 09/23/16 Past Psychological History: No Psychological Hx Reported Smoking Status: Never smoker Past Alcohol Use History: None Reported Past Drug Use History: None Reported - Past Family History Mother Family Medical History: No Reported History Additional Family Medical History / Comment(s): heart disease, brain aneurysm Father Family Medical History: Diabetes Mellitus, Osteoarthritis (OA), Prostate Disorder Additional Family Medical History / Comment(s): heart disease General Exam - General Exam Comments Initial Comments: General: Awake, alert, No acute Distress HENT: Normocephalic. Contusion superior to right eyebrow Eyes: PERRL. EOMI. No scleral icterus. No injected conjunctiva Neck: Full ROM Chest/Lungs: Clear to auscultation bilaterally. No wheezing, rhonchi, or rales Cardiac: Regular rate, rhythm. No murmurs or rubs Abdomen/GI: Soft, nontender, nondistended. No rebound, guarding, or rigidity. Musculoskeletal: Full ROM Skin: Warm, dry, intact Neurologic: A/Ox2, no weakness, no sensory deficit, no abnormal gait, no coordination deficit Course Vital Signs 10/15/18 20:00 Temperature 98.5 F Pulse Rate 54 L Respiratory 17 Rate Blood Pressure 175/82 O2 Sat by Pulse 98 Oximetry Medical Decision Making - Medical Decision Making 83-year-old male presenting after mechanical fall. Initial exam the patient is awake, alert, no acute distress. VSS. Patient's is at bedside and states that he is at his baseline mental status. He has a small contusions. His right eyebrow but otherwise there are no other visible signs of injury. His CT head and neck were negative for acute process. There was no history of presyncopal symptoms at this time the patient is well-appearing.No further emergent workup indicated. The patient was given return to ED instructions. They were instructed to follow up with their primary care provider. Stable for discharge at this time. Disposition Clinical Impression: Fall Disposition: HOME SELF-CARE Condition: Good Instructions (If sedation given, give patient instructions): Fall Prevention for Older Adults (ED) Additional Instructions: Return to ED if worsening mental status. Is patient prescribed a controlled substance at d/c from ED?: No Referrals: Devon Pendleton MD [Primary Care Provider] - 1-2 days
--- NOTE | 2018-10-15 22:34 | CT ---
EXAM: CT Head Without Intravenous Contrast CLINICAL HISTORY: ITS.REASON CT Reason: Pain TECHNIQUE: Axial computed tomography images of the head/brain without intravenous contrast. CTDI is 56 mGy and DLP is 1255 mGy-cm. This CT exam was performed using one or more of the following dose reduction techniques: automated exposure control, adjustment of the mA and/or kV according to patient size, and/or use of iterative reconstruction technique. COMPARISON: No relevant prior studies available. FINDINGS: Brain: Age-related cerebral atrophy. Old lacunar infarct in the left basal ganglia. Age-indeterminate small vessel ischemic changes in the periventricular and subcortical white matter. No hemorrhage. Ventricles: Unremarkable. No ventriculomegaly. Bones/joints: Unremarkable. No acute fracture. Soft tissues: Unremarkable. Sinuses: Unremarkable as visualized. No acute sinusitis. Mastoid air cells: Trace fluid in the mastoid air cells bilaterally. IMPRESSION: No acute findings. Age-related cerebral atrophy and senescent white matter changes. Old lacunar infarct in left basal ganglia. EXAM: CT Cervical Spine Without Intravenous Contrast CLINICAL HISTORY: ITS.REASON CT Reason: Pain TECHNIQUE: Axial computed tomography images of the cervical spine without intravenous contrast. CTDI is 56 mGy and DLP is 1255 mGy-cm. This CT exam was performed using one or more of the following dose reduction techniques: automated exposure control, adjustment of the mA and/or kV according to patient size, and/or use of iterative reconstruction technique. COMPARISON: No relevant prior studies available. FINDINGS: Vertebrae: Severe intervertebral disc height loss and ankylosis at the C3-C4 level. Moderate multilevel intervertebral disc height loss and endplate osteophyte formation. Loss of cervical lordosis. Levocurvature of the cervical spine. No acute fracture. Discs/spinal canal/neural foramina: No acute findings. No spinal canal stenosis. Soft tissues: Unremarkable. IMPRESSION: No fracture or subluxation. Moderate multilevel cervical spondylosis. Ankylosis at C3-C4 level. Levocurvature of the cervical spine. <MYCVCSECTION> Critical Value Communications 10/15/18 22:48 Verify Receipt Verified receipt with Dr. Cordoba on 10/15 22:48 (-04:00)
[2018-10-16] MEDS ORDERED: cloNIDine HCL 0.1 MG TAB PO STA (00:13)
[2018-10-16] MEDS ORDERED: hydrALAZINE HCL 50 MG TAB PO STA (00:17)
[2018-10-16] MEDS ORDERED: METOPROLOL TARTRATE 50 MG TAB PO STA (00:18)
[2018-10-16 05:33] VITALS: BP 210/76; PULSE 61; RESP 18
== END 2018-10-16 00:35 | disposition home or self-care (01) ==
LOC: EC 19:53
DX: S00.11XA Contusion of right eyelid and periocular area, initial encounter (principal); I25.119 Atherosclerotic heart disease of native coronary artery with unspecified angina pectoris; I69.341 Monoplegia of lower limb following cerebral infarction affecting right dominant side; G47.30 Sleep apnea, unspecified; E11.9 Type 2 diabetes mellitus without complications; I10 Essential (primary) hypertension; M10.9 Gout, unspecified; H91.90 Unspecified hearing loss, unspecified ear; E78.5 Hyperlipidemia, unspecified; Z79.4 Long term (current) use of insulin; Z79.82 Long term (current) use of aspirin; Z79.01 Long term (current) use of anticoagulants; Z79.02 Long term (current) use of antithrombotics/antiplatelets; Z79.890 Hormone replacement therapy; Z79.899 Other long term (current) drug therapy; Z91.041 Radiographic dye allergy status; Z91.018 Allergy to other foods; Z91.013 Allergy to seafood; Z91.011 Allergy to milk products; Z85.828 Personal history of other malignant neoplasm of skin; Z85.46 Personal history of malignant neoplasm of prostate; Z92.3 Personal history of irradiation; Z99.89 Dependence on other enabling machines and devices; Z95.5 Presence of coronary angioplasty implant and graft; W05.0XXA Fall from non-moving wheelchair, initial encounter; Y92.238 Other place in hospital as the place of occurrence of the external cause
CPT/HCPCS: 70450; 72125; 99284